=== PATIENT | female | born 1960 | race Caucasian/White ===

== ENCOUNTER 2017-07-10 10:33 | Emergency (ER) | payer SELFPAY ==
--- NOTE | 2017-07-10 11:06 | ER Document Report ---
ED Hip Pain/Injury - General Chief Complaint: Hip Pain Stated Complaint: RIGHT HIP PAIN Time Seen by Provider: 07/10/17 10:44 Mode of Arrival: Ambulatory Information source: Patient TRAVEL OUTSIDE OF THE [place] IN LAST 30 DAYS: No - HPI Patient complains to provider of: Pain Occurred: Other - Months Onset/Duration: Gradual Quality of pain: Dull Severity: Moderate Pain Level: 2 Symptoms since fall: denies: Chest pain, Cough, Dizzy/light-headed, Fever/chills /sweats, Vomiting/diarrhea Skin Color: Normal Skin Temperature: Warm Notes: Patient arrives with complaints of right hip pain for the last 5 months. 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 She has any low back pain now. She complains of right hip pain, worse with movement. She is having trouble sleeping now due to the pain. She denies any abdominal pain, nausea, vomiting, diarrhea, dysuria. She denies any numbness, tingling, weakness. She denies any bowel or bladder dysfunction. She denies IV drug use, blood thinners , fever. She has no other complaints at this time. - Related Data Allergies/Adverse Reactions: acetaminophen [From Pamprin Max] Allergy (Verified 07/10/17 10:38) aspirin [From Pamprin Max] Allergy (Verified 07/10/17 10:38) caffeine [From Pamprin Max] Allergy (Verified 07/10/17 10:38) Past Medical History - Social History Smoking Status: Current Every Day Smoker Chew tobacco use (# tins/day): No Frequency of alcohol use: Rare Drug Abuse: None Family History: Reviewed & Not Pertinent Renal/ Medical History: Denies: Hx Peritoneal Dialysis Surgical Hx: Negative - Immunizations Hx Diphtheria, Pertussis, Tetanus Vaccination: No Review of Systems - Review of Systems -: Yes All other systems reviewed and negative Physical Exam - Vital signs Vitals: Temp Pulse Resp BP Pulse Ox 97.6 F 74 20 194/74 H 95 07/10/17 10:40 07/10/17 10:40 07/10/17 10:40 07/10/17 10:40 07/10/17 10:40 - Notes Notes: GENERAL: alert, cooperative, nontoxic, no distress. HEAD: normocephalic, atraumatic EYES: conjunctiva pink without discharge, no external redness or swelling. EARS: no external swelling, no external redness NOSE: atraumatic, no external swelling MOUTH/THROAT: mucous membranes moist and pink, posterior pharynx without erythema, swelling, exudate. No trismus or drooling. NECK: soft, supple, full range of motion, no meningismus. CHEST: no distress, lungs clear and equal throughout. No wheezing, rales, rhonchi. CARDIAC: regular rate and rhythm, no murmur, normal capillary refill, normal pulses. No peripheral edema noted. ABDOMEN: soft, nontender, no pusatile mass. BACK: Full range of motion, no redness, no rash. EXTREMITIES: full range of motion of all extremities. No redness, no swelling. NEURO: alert and oriented -3, no focal deficits, full range of motion of all extremities. 5 out of 5 flexion and extension of the lower extremities bilaterally. Patellar and Achilles deep tendon reflexes are +2 bilaterally. Normal sensation with no saddle anesthesia. PYSCH: appropriate mood, affect. Patient is cooperative. SKIN: pink, warm, dry, no rash. Course - Re-evaluation Re-evalutation: 07/10/17 13:11 Patient is nontoxic appearing with stable vitals. Patient has been experiencing right hip pain for the past several months. No significant trauma. She has a benign exam. Plain x-rays showed a possible lytic lesion. CT of the pelvis shows a aggressive lytic lesion to the right acetabulum concerning for possible myeloma or metastatic disease. I discussed these findings with the patient. She does not currently have a primary care provider here. I will refer her to oncology as well as primary care. I stressed the importance of having this further evaluated as it is possible that she has cancer that is undiagnosed. The patient is noted to have elevated blood pressure during today's emergency department visit. The patient was informed of this finding. The patient was instructed that this may be related to pre-hypertension and requires further evaluation with a primary care provider. The patient has no hypertensive symptoms at this time. - Vital Signs Vital signs: Temp Pulse Resp BP Pulse Ox 97.4 F 62 16 192/75 H 98 07/10/17 11:56 07/10/17 11:56 07/10/17 11:56 07/10/17 11:56 07/10/17 11:56 - Diagnostic Test Radiology reviewed: Image reviewed, Reports reviewed - Plain x-rays showed possible lytic lesion in the right pubic rami. CT of the pelvis shows aggressive lytic lesion in the right acetabulum. Discharge - Discharge Clinical Impression: Lytic bone lesion of hip Condition: Stable Disposition: HOME, SELF-CARE Instructions: Oral Narcotic Medication ([facility]) Additional Instructions: Take medications as prescribed. Follow-up with oncology and primary care at the next available appointment. Follow-up sooner for increased pain, fever, any further concerns. Your blood pressure was elevated during today's visit. Have this rechecked with your doctor. Prescriptions: Hydrocodone/Acetaminophen [[place] 5-325 mg Tablet] 1 tab PO Q4 PRN #20 tablet PRN Reason: Forms: Elevated Blood Pressure, Return to Work Referrals: EMELY DAVIS MD [ACTIVE STAFF] - Follow up as needed [facility] [Provider Group] - Follow up as needed
[2017-07-10 11:58] VITALS: BP 192/75
--- NOTE | 2017-07-10 12:08 | RADIOLOGY REPORT (SQ) ---
EXAM DESCRIPTION: HIP RIGHT AP/LATERAL COMPLETED DATE/TIME: 07/10/2017 11:43 am REASON FOR STUDY: PAIN COMPARISON: None. NUMBER OF VIEWS: Two views. TECHNIQUE: AP pelvis and additional frog-leg view of the right hip. LIMITATIONS: None. FINDINGS: Discontinuous right iliopectineal line may be artifact of positioning however cannot exclu de an aggressive bone lesion in the superior pubic ramus. IMPRESSION: Questionable lytic lesion right pubic ramus. TECHNICAL DOCUMENTATION: JOB ID: [id number] [employer]- All Rights Reserved
--- NOTE | 2017-07-10 12:10 | RADIOLOGY REPORT (SQ) ---
EXAM DESCRIPTION: L SPINE WHOLE COMPLETED DATE/TIME: 07/10/2017 11:43 am REASON FOR STUDY: PAIN COMPARISON: None. NUMBER OF VIEWS: Five views including obliques. TECHNIQUE: AP, lateral, oblique, and sacral radiographic images acquired of the lumbar spine. LIMITATIONS: None. FINDINGS: MINERALIZATION: Normal. SEGMENTATION: Normal. No transitional anatomy. ALIGNMENT: Normal. VERTEBRAE: Maintained height. No fracture or worrisome bone lesion. DISCS: Multilevel disc space narrowing with osteophytes. POSTERIOR ELEMENTS: Pedicles and facets are intact. No pars defect or posterior arch defects. Facet arthropathy is present. HARDWARE: None in the spine. PARASPINAL SOFT TISSUES: Normal. PELVIS: See separate report of the same date. OTHER: No other significant finding. IMPRESSION: SPONDYLOSIS WITHOUT BONE LESION OR FRACTURE. TECHNICAL DOCUMENTATION: JOB ID: [id number] [employer]- All Rights Reserved
--- NOTE | 2017-07-10 12:58 | RADIOLOGY REPORT (SQ) ---
EXAM DESCRIPTION: CT PELVIS WITHOUT COMPLETED DATE/TIME: 07/10/2017 12:37 pm REASON FOR STUDY: RIGHT HIP PAIN, POSSIBLE LYTIC LESION RIGHT RAMI COMPARISON: None. TECHNIQUE: CT scan of the pelvis performed without intravenous or oral contrast. Images reviewed wi th soft tissue and bone windows. Reconstructed coronal and sagittal MPR images reviewed. All images stored on PACS. All CT scanners at this facility use dose modulation, iterative reconstruction, and/or weight based d osing when appropriate to reduce radiation dose to as low as reasonably achievable (ALARA). [facility]: Dose Right [facility]: CareDose [facility]: Dose Right [facility]: Teradose 4D [facility]: [employer] RADIATION DOSE: Up-to-date CT equipment and radiation dose reduction techniques were employed. CTDIv ol: 18.3 mGy. DLP: 563 mGy-cm. mGy. LIMITATIONS: None. FINDINGS: There is a lytic lesion in the right acetabulum which has eroded the medial margin of the ilium and acetabular roof. Lesion measures roughly 2.8 x 4.7 by 3.7 cm. IMPRESSION: Aggressive lytic lesion right acetabulum, most likely myeloma or metastatic disease. TECHNICAL DOCUMENTATION: JOB ID: [id number] Quality ID # [id number]: Final reports with documentation of one or more dose reduction techniques (e.g., Au tomated exposure control, adjustment of the mA and/or kV according to patient size, use of iterative reconstruction technique) 2010 [employer]- All Rights Reserved
== END 2017-07-10 13:29 | disposition home or self-care (01) ==
LOC: ER 10:33
DX: M89.9 Disorder of bone, unspecified (principal); M25.551 Pain in right hip; F17.200 Nicotine dependence, unspecified, uncomplicated
CPT/HCPCS: 72110; 72192; 99284

== ENCOUNTER → 2017-08-25 | Outpatient (CLI) | payer SELFPAY ==
--- NOTE | 2017-08-25 10:58 | RADIOLOGY REPORT (SQ) ---
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 TECHNIQUE: CT scan of the chest performed using helical scanning technique with dynamic intravenous contrast injection. Images reviewed with lung, soft tissue and bone windows. Reconstructed coronal a nd sagittal MPR images reviewed. All images stored on PACS. All CT scanners at this facility use dose modulation, iterative reconstruction, and/or weight based d osing when appropriate to reduce radiation dose to as low as reasonably achievable (ALARA). [facility]: Dose Right [facility]: CareDose [facility]: Dose Right [facility]: Teradose 4D [facility]: Smart [employer] RADIATION DOSE: Up-to-date CT equipment and radiation dose reduction techniques were employed. CTDIv ol: 6.7 - 13.6 mGy. DLP: 1623 mGy-cm.. LIMITATIONS: Limited clinical information. FINDINGS: AXILLAE: Small subcentimeter axillary nodes without suspicious enlargement. CHEST WALL: No masses. No subcutaneous air. LUNGS: Mass adjacent to the right hilum with mild spiculation, regional architectural distortion and associated volume loss in the lung of the right upper lobe. This measures at least 3.7 x 5 cm AP by transverse. PLEURA: No effusions. No calcifications. THYROID: No masses or significant asymmetry. HILAR AND MEDIASTINAL STRUCTURES: Small nodes in the mediastinum measure just under 1 cm short axis. Mass adjacent to the right hilum with probable confluent adenopathy. AORTA AND GREAT VESSELS: No aneurysm. No dissection. PULMONARY ARTERIES: No identified pulmonary emboli. Study not optimized for the pulmonary arteries. HEART: No pericardial effusion. HARDWARE AND LIFELINES: None. BONES: No significant finding. OTHER: No other significant finding. IMPRESSION: 1. Sizable mass in the right upper lobe. Appearance suggests primary lung cancer. No other lung lesions are detected. COMPARISON: As above. RADIATION DOSE: Up-to-date CT equipment and radiation dose reduction techniques were employed. CTDIv ol: 6.7 - 13.6 mGy. DLP: 1623 mGy-cm.mGy. TECHNIQUE: CT scan of the abdomen and pelvis performed with intravenous and oral contrast using eldon adilene scanning technique with dynamic intravenous contrast injection. Images reviewed with lung, soft tissue and bone windows. Reconstructed coronal and sagittal MPR images reviewed. Delayed images for evaluation of the urinary system also acquired and evaluated. All images stored on PACS. All CT scanners at this facility use dose modulation, iterative reconstruction, and/or weight based d osing when appropriate to reduce radiation dose to as low as reasonably achievable (ALARA). [facility]: Dose Right [facility]: [employer] [facility]: Dose Right [facility]: Teradose 4D [facility]: [place] FINDINGS: LIVER: Normal size. No masses. No dilated ducts. SPLEEN: Normal size. No focal lesions. PANCREAS: No masses. No significant calcifications. No adjacent inflammation or peripancreatic flui d collections. Pancreatic duct not dilated. GALLBLADDER: No identified stones by CT criteria. No inflammatory changes to suggest cholecystitis. ADRENAL GLANDS: No significant masses or asymmetry. RIGHT KIDNEY AND URETER: No solid masses. No significant calcification. No hydronephrosis or hydroure ter. LEFT KIDNEY AND URETER: No solid masses. No significant calcification. No hydronephrosis or hydrouret er. AORTA AND VESSELS: Atherosclerotic aorta without aneurysm or dissection. Generally patent major star rial structures. No venous clot detected. RETROPERITONEUM: No retroperitoneal adenopathy, hemorrhage or masses. LARGE AND SMALL BOWEL: No dilatation. No masses. No wall thickening. APPENDIX: Normal. ABDOMINAL WALL: No hernia or masses. PERITONEAL CAVITY: No free air. No free fluid. No peritoneal implants or masses. PELVIS: 1.8 cm left jame pelvic cyst, adnexal etiology suspected. Destructive lesion in the right ac etabulum with soft tissue breaching the cortical surfaces as before. Slight progression. Maximal AP extent now over 8 cm. BONES: As above. Additional presumed lytic lesions in the right inferior pubic ramus, left ischium, right ischium. OTHER: No other significant finding. IMPRESSION: 1. Slightly progressive destructive lesion in the right acetabulum. Additional subtle lytic lesions are also present in the inferior right pubic ramus and ischia. Presumably metastatic l esions. Correlate with any biopsy/pathology results. TECHNICAL DOCUMENTATION: JOB ID: [id number] Quality ID # 436: Final reports with documentation of one or more dose reduction techniques (e.g., Au tomated exposure control, adjustment of the mA and/or kV according to patient size, use of iterative reconstruction technique) 2010 [employer]- All Rights Reserved
== END ==
LOC: RAD 09:09
PROVIDERS: ATTEND Orthopaedic Surgery
DX: C79.51 Secondary malignant neoplasm of bone (principal)
CPT/HCPCS: 71260; 74177; 82565

== ENCOUNTER 2017-09-01 08:52 | Day surgery (SDC) | payer SELFPAY ==
[2017-09-01 09:38] LABS: HEMATOCRIT 37.5 % (36.0-47.0); HEMOGLOBIN 13.3 g/dL (12.0-15.5); HGB HCT DIFFERENCE 2.4; MEAN CORPUSCULAR HGB CONC 35.6 g/dL (32.0-36.0); MEAN CORPUSCULAR VOLUME 90 fl (80-97); PROTHROMBIN TIME 13.3 SEC (11.4-15.4); RED BLOOD COUNT 4.17 10^6/uL (3.72-5.28); RED CELL DISTRIBUTION WIDTH 13.4 % (11.5-14.0); WHITE BLOOD COUNT 9.7 10^3/uL (4.0-10.5)
[2017-09-01 09:39] LABS: PARTIAL THROMBOPLASTIN TIME 28.7 SEC (23.5-35.8)
[2017-09-01 09:58] LABS: BLOOD UREA NITROGEN 20 mg/dL (7-20); CREATININE RESULT 0.64 mg/dL (0.52-1.25)
[2017-09-01] MEDS ORDERED: ALBUTEROL SULFATE 0.083% NEB 2.5 MG/3 ML AMPUL NEB ONE (10:47)
[2017-09-01] MEDS ORDERED: FENTANYL CITRATE INJ/PF 100 MCG/2 ML AMPUL ONE (11:18)
[2017-09-01] MEDS ORDERED: MIDAZOLAM 2 MG/2 ML INJ ONE (11:18)
--- NOTE | 2017-09-01 13:34 | RADIOLOGY REPORT (SQ) ---
EXAM DESCRIPTION: CT BIOPSY BONE DEEP; CT NEEDLE PLACEMENT COMPLETED DATE/TIME: 09/01/2017 12:06 pm REASON FOR STUDY: MALIGNANT NEOPLASM OF BONE; MALIGNANT NEOPLASM OF BONE, BONE BIOPSY C79.51 SECOND IVETT MALIGNANT NEOPLASM OF BONE COMPARISON: Right hip films 07/10/2017 CT pelvis 07/10/2017 CT abdomen pelvis 08/25/2017 TECHNIQUE: CT guided biopsy of the right acetabular roof bony lytic lesion performed with conscious sedation. CT Fluoroscopy Time: 3.[address] scanners at this facility use dose modulation, iterative reconstruction, and/or weight based d osing when appropriate to reduce radiation dose to as low as reasonably achievable (ALARA). [facility]: Dose Right [facility]: CareDose [facility]: Dose Right [facility]: Teradose 4D [facility]: [email or web address] RADIATION DOSE: 48 mGy. FINDINGS: The procedure was discussed with the patient and the patient agreed to the procedure. Prio r to the procedure, a time out was performed to verify the patient's identity and planned procedure. IV sedation was administered and physician direction by the registered nurse using 1 milligrams of Ve rsed and 100 micrograms of fentanyl. Physiologic monitoring was provided before, during, and after se dation. The total sedation time was 30 minutes. Documentation face to face time, the performing proceduralist, spent monitoring the patient: [address] scanning was performed to localize the percutaneous site for the biopsy approach. After sterile skin prep and local lidocaine for skin and deep tissue anesthesia, a coaxial biopsy nee dle was used to obtain multiple cores of tissue. The biopsy tract was embolized with a gelfoam plug. The biopsy tissue was submitted to the lab in formalin. There were no immediate complications. Pathology is pending at the time of dictation. IMPRESSION: CT GUIDED BIOPSY OF THE LYTIC BONE LESION RIGHT ACETABULAR ROOF PERFORMED WITHOUT IMMEDI ATE COMPLICATION. PATHOLOGY PENDING. COMMENT: Quality ID 145: Final reports for procedures using fluoroscopy that document radiation exp osure indices, or exposure time and number of fluorographic images (if radiation exposure indices are not available) Patient medication list reviewed: Yes- Quality ID# [id number]:Eligible professional attests to documenting i n the medical record they obtained, updated, or reviewed the patient's current medications.. TECHNICAL DOCUMENTATION: JOB ID: [id number] Quality ID# 436: Final reports with documentation of one or more dose reduction techniques (e.g., Aut omated exposure control, adjustment of the mA and/or kV according to patient size, use of iterative r econstruction technique) 2010 [employer]- All Rights Reserved
--- NOTE | 2017-09-01 13:34 | RADIOLOGY REPORT (SQ) ---
EXAM DESCRIPTION: CT BIOPSY BONE DEEP; CT NEEDLE PLACEMENT COMPLETED DATE/TIME: 09/01/2017 12:06 pm REASON FOR STUDY: MALIGNANT NEOPLASM OF BONE; MALIGNANT NEOPLASM OF BONE, BONE BIOPSY C79.51 SECOND IVETT MALIGNANT NEOPLASM OF BONE COMPARISON: Right hip films 07/10/2017 CT pelvis 07/10/2017 CT abdomen pelvis 08/25/2017 TECHNIQUE: CT guided biopsy of the right acetabular roof bony lytic lesion performed with conscious sedation. CT Fluoroscopy Time: 3.[address] scanners at this facility use dose modulation, iterative reconstruction, and/or weight based d osing when appropriate to reduce radiation dose to as low as reasonably achievable (ALARA). [facility]: Dose Right [facility]: CareDose [facility]: Dose Right [facility]: Teradose 4D [facility]: [employer] RADIATION DOSE: 48 mGy. FINDINGS: The procedure was discussed with the patient and the patient agreed to the procedure. Prio r to the procedure, a time out was performed to verify the patient's identity and planned procedure. IV sedation was administered and physician direction by the registered nurse using 1 milligrams of Ve rsed and 100 micrograms of fentanyl. Physiologic monitoring was provided before, during, and after se dation. The total sedation time was 30 minutes. Documentation face to face time, the performing proceduralist, spent monitoring the patient: [address] scanning was performed to localize the percutaneous site for the biopsy approach. After sterile skin prep and local lidocaine for skin and deep tissue anesthesia, a coaxial biopsy nee dle was used to obtain multiple cores of tissue. The biopsy tract was embolized with a gelfoam plug. The biopsy tissue was submitted to the lab in formalin. There were no immediate complications. Pathology is pending at the time of dictation. IMPRESSION: CT GUIDED BIOPSY OF THE LYTIC BONE LESION RIGHT ACETABULAR ROOF PERFORMED WITHOUT IMMEDI ATE COMPLICATION. PATHOLOGY PENDING. COMMENT: Quality ID 145: Final reports for procedures using fluoroscopy that document radiation exp osure indices, or exposure time and number of fluorographic images (if radiation exposure indices are not available) Patient medication list reviewed: Yes- Quality ID# [id number]:Eligible professional attests to documenting i n the medical record they obtained, updated, or reviewed the patient's current medications.. TECHNICAL DOCUMENTATION: JOB ID: [id number] Quality ID# [id number]: Final reports with documentation of one or more dose reduction techniques (e.g., Aut omated exposure control, adjustment of the mA and/or kV according to patient size, use of iterative r econstruction technique) 2010 [employer]- All Rights Reserved
[2017-09-01 13:48] VITALS: BP 119/68
== END 2017-09-01 13:40 | disposition home or self-care (01) ==
LOC: RAD 08:52
PROVIDERS: ATTEND Orthopaedic Surgery
PROC: 0QB63ZX Excision of Right Upper Femur, Percutaneous Approach, Diagnostic (ICD-10-PCS; principal; 2017-09-01)
DX: C79.51 Secondary malignant neoplasm of bone (principal); J45.909 Unspecified asthma, uncomplicated; I10 Essential (primary) hypertension; Z87.891 Personal history of nicotine dependence
CPT/HCPCS: 36415; 84520; 82565; 85027; 85610; 85730; 88342 ×2; 88341 ×2; 88305 ×2; 88313 ×2; 77012; 20225; J2250; J3010

== ENCOUNTER 2017-09-10 12:36 | Emergency (ER) | payer SELFPAY ==
[2017-09-10 12:45] VITALS: BP 125/65
--- NOTE | 2017-09-10 13:26 | ER Document Report ---
ED Medical Screen (RME) - General Chief Complaint: Leg Pain Stated Complaint: RIGHT HIP PAIN Time Seen by Provider: 09/10/17 13:23 Mode of Arrival: Wheelchair Information source: Patient TRAVEL OUTSIDE OF THE [place] IN LAST 30 DAYS: No - HPI Patient complains to provider of: injury to R hip Onset: Yesterday - pt. 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 She had an injury to her R leg yesterday which has caused increased pain in her hip today. - Related Data Allergies/Adverse Reactions: acetaminophen [From Pamprin Max] Allergy (Verified 09/10/17 12:42) aspirin [From Pamprin Max] Allergy (Verified 09/10/17 12:42) caffeine [From Pamprin Max] Allergy (Verified 09/10/17 12:42) codeine Allergy (Verified 09/10/17 12:42) Tachycardia Past Medical History - Past Medical History Cardiac Medical History: Reports: Hx Hypertension Denies: Hx Coronary Artery Disease, Hx Heart Attack Pulmonary Medical History: Reports: Hx Asthma Denies: Hx Bronchitis, Hx COPD, Hx Pneumonia Neurological Medical History: Denies: Hx Cerebrovascular Accident, Hx Seizures Renal/ Medical History: Denies: Hx Peritoneal Dialysis Musculoskeltal Medical History: Denies Hx Arthritis - Immunizations Hx Diphtheria, Pertussis, Tetanus Vaccination: Yes History of Influenza Vaccine for 08/2017 - 01/2018 Season: No Physical Exam - Vital signs Vitals: Temp Pulse Resp BP Pulse Ox 98.0 F 73 18 125/65 96 09/10/17 12:42 09/10/17 12:42 09/10/17 12:42 09/10/17 12:42 09/10/17 12:42 Course - Vital Signs Vital signs: Temp Pulse Resp BP Pulse Ox 98.0 F 73 18 125/65 96 09/10/17 12:42 09/10/17 12:42 09/10/17 12:42 09/10/17 12:42 09/10/17 12:42
--- NOTE | 2017-09-10 13:53 | RADIOLOGY REPORT (SQ) ---
EXAM DESCRIPTION: HIP RIGHT AP/LATERAL COMPLETED DATE/TIME: 09/10/2017 1:44 pm REASON FOR STUDY: trauma to hip COMPARISON: 07/10/2017. NUMBER OF VIEWS: Two views. TECHNIQUE: AP pelvis and additional frog-leg view of the right hip. LIMITATIONS: None. FINDINGS: MINERALIZATION: Normal. RIGHT HIP: No fracture or dislocation. Significant progression of the aggressive lytic lesion involv ing the acetabulum. LEFT HIP: No fracture or dislocation. No worrisome bone lesions. PUBIS AND ISCHIUM: No fracture. PELVIS: No fracture. SACRUM: No fracture or dislocation. No worrisome bone lesions. LOWER LUMBAR SPINE: No fracture or dislocation. No worrisome bone lesions. Degenerative disc disease . SOFT TISSUES: No findings. OTHER: No other significant finding. IMPRESSION: SIGNIFICANT PROGRESSION OF THE AGGRESSIVE LYTIC LESION INVOLVING THE RIGHT ACETABULUM. NO DEFINITE ACUTE TRAUMATIC FINDINGS. TECHNICAL DOCUMENTATION: JOB ID: [id number] [employer]- All Rights Reserved
--- NOTE | 2017-09-10 14:05 | ER Document Report ---
ED General - General Chief Complaint: Leg Pain Stated Complaint: RIGHT HIP PAIN Time Seen by Provider: 09/10/17 13:23 Mode of Arrival: Wheelchair Information source: Patient, [facility] Records TRAVEL OUTSIDE OF THE [place] IN LAST 30 DAYS: No - HPI Onset: Yesterday Onset/Duration: Sudden Quality of pain: Dull Severity: Moderate Associated symptoms: None Exacerbated by: Denies Relieved by: Denies Similar symptoms previously: Yes Recently seen / treated by doctor: Yes Notes: Patient is a 56-year-old female with known history of malignant neoplasm of right hip. Patient underwent CT-guided biopsy of right acetabular roof on September 01. Patient does receive radiation therapy to this area as well. Yesterday, after her radiation therapy, she john her right hip causing pain. Patient was concerned that maybe it was broken or dislocated. Patient presents this afternoon for evaluation of her right hip pain. She is on chronic opioid therapy for her bone pain. Patient denies any other complaints or injuries. - Related Data Allergies/Adverse Reactions: acetaminophen [From Pamprin Max] Allergy (Verified 09/10/17 12:42) aspirin [From Pamprin Max] Allergy (Verified 09/10/17 12:42) caffeine [From Pamprin Max] Allergy (Verified 09/10/17 12:42) codeine Allergy (Verified 09/10/17 12:42) Tachycardia Past Medical History - General Information source: Patient, [facility] Records - Social History Smoking Status: Current Every Day Smoker Chew tobacco use (# tins/day): No Frequency of alcohol use: None Drug Abuse: None Family History: Reviewed & Not Pertinent Patient has suicidal ideation: No Patient has homicidal ideation: No - Past Medical History Cardiac Medical History: Reports: Hx Hypertension Denies: Hx Coronary Artery Disease, Hx Heart Attack Pulmonary Medical History: Reports: Hx Asthma Denies: Hx Bronchitis, Hx COPD, Hx Pneumonia Neurological Medical History: Denies: Hx Cerebrovascular Accident, Hx Seizures Renal/ Medical History: Denies: Hx Peritoneal Dialysis Musculoskeltal Medical History: Denies Hx Arthritis Surgical Hx: Negative - Immunizations Hx Diphtheria, Pertussis, Tetanus Vaccination: Yes Review of Systems - Review of Systems Musculoskeletal: Joint pain -: Yes All other systems reviewed and negative Physical Exam - Vital signs Vitals: Temp Pulse Resp BP Pulse Ox 98.0 F 73 18 125/65 96 09/10/17 12:42 09/10/17 12:42 09/10/17 12:42 09/10/17 12:42 09/10/17 12:42 - General General appearance: Appears well, Alert In distress: None - Respiratory Respiratory status: No respiratory distress Breath sounds: Normal - Cardiovascular Rhythm: Regular Heart sounds: Normal auscultation - Extremities General upper extremity: Normal inspection, Other - Right hip tender to palpation with painful passive and active range of motion, joint does not appear dislocated, there is no gross deformity, all other extremities are within normal limits - Neurological Neuro grossly intact: Yes Cognition: Normal Orientation: AAOx4 [place] Coma Scale Eye Opening: Spontaneous [place] Coma Scale Verbal: Oriented [place] Coma Scale Motor: Obeys Commands [place] Coma Scale Total: 15 Speech: Normal Motor strength normal: LUE, RUE, LLE, RLE Sensory: Normal Course - Vital Signs Vital signs: Temp Pulse Resp BP Pulse Ox 98.0 F 73 18 125/65 96 09/10/17 12:42 09/10/17 12:42 09/10/17 12:42 09/10/17 12:42 09/10/17 12:42 - Diagnostic Test Radiology reviewed: Reports reviewed Radiology results interpreted by me: 09/10/17 14:04 Per radiologist, extensive lytic changes in the right hip but no acute traumatic findings. Patient given copy of x-ray report for her radiation oncologist reviewed. Discharge - Discharge Clinical Impression: Hip pain Disposition: HOME, SELF-CARE Instructions: Contusion ([facility]) Additional Instructions: Continue on your prescribed pain medication. Follow-up with your oncologist, radiation oncologist, and primary care doctor. Return to the emergency department if worse or for any other problems.
== END 2017-09-10 14:35 | disposition home or self-care (01) ==
LOC: ER 12:36
DX: M25.551 Pain in right hip (principal); C76.51 Malignant neoplasm of right lower limb; F17.200 Nicotine dependence, unspecified, uncomplicated; I10 Essential (primary) hypertension; M89.8X9 Other specified disorders of bone, unspecified site; Z79.891 Long term (current) use of opiate analgesic; Z88.5 Allergy status to narcotic agent; Z88.6 Allergy status to analgesic agent; Z91.048 Other nonmedicinal substance allergy status
CPT/HCPCS: 99283

== ENCOUNTER 2017-09-16 11:33 | Inpatient (IN) | payer MEDICAID ==
--- NOTE | 2017-09-16 12:24 | ER Document Report ---
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 She is on large doses of pain medication. Last bowel movement was 1 week ago, was starting get hard then. She has been taking stool softeners but has not had a bowel movement in the past week and is becoming uncomfortable due to this. I have greeted and performed a rapid initial assessment of this patient. A comprehensive ED assessment and evaluation of the patient, analysis of test results and completion of the medical decision making process will be conducted by additional ED providers. TRAVEL OUTSIDE OF THE [place] IN LAST 30 DAYS: No - Related Data Allergies/Adverse Reactions: acetaminophen [From Pamprin Max] Allergy (Verified 09/16/17 11:34) aspirin [From Pamprin Max] Allergy (Verified 09/16/17 11:34) caffeine [From Pamprin Max] Allergy (Verified 09/16/17 11:34) codeine Allergy (Verified 09/16/17 11:34) Tachycardia Past Medical History - Social History Chew tobacco use (# tins/day): No Frequency of alcohol use: None Drug Abuse: None - Past Medical History Cardiac Medical History: Reports: Hx Hypertension Denies: Hx Coronary Artery Disease, Hx Heart Attack Pulmonary Medical History: Reports: Hx Asthma Denies: Hx Bronchitis, Hx COPD, Hx Pneumonia Neurological Medical History: Denies: Hx Cerebrovascular Accident, Hx Seizures Renal/ Medical History: Denies: Hx Peritoneal Dialysis Musculoskeltal Medical History: Denies Hx Arthritis - Immunizations Hx Diphtheria, Pertussis, Tetanus Vaccination: Yes History of Influenza Vaccine for 08/2017 - 01/2018 Season: No Physical Exam - Vital signs Vitals: Temp Pulse Resp BP Pulse Ox 98.4 F 80 18 99/54 L 95 09/16/17 11:37 09/16/17 11:37 09/16/17 11:37 09/16/17 11:37 09/16/17 11:37 Course - Vital Signs Vital signs: Temp Pulse Resp BP Pulse Ox 98.4 F 80 18 99/54 L 95 09/16/17 11:37 09/16/17 11:37 09/16/17 11:37 09/16/17 11:37 09/16/17 11:37
--- NOTE | 2017-09-16 12:51 | RADIOLOGY REPORT (SQ) ---
EXAM DESCRIPTION: KUB/ABDOMEN (SINGLE VIEW) COMPLETED DATE/TIME: 09/16/2017 12:35 pm REASON FOR STUDY: CONSTIPATION COMPARISON: None. NUMBER OF VIEWS: One view. TECHNIQUE: Supine radiographic image of the abdomen acquired. LIMITATIONS: None. FINDINGS: BOWEL GAS PATTERN: Normal bowel gas pattern. No dilated loops. CONSTIPATION: moderate CALCIFICATIONS: No suspicious calcifications. SOFT TISSUES: No gross mass or suggestion of organomegaly. HARDWARE: None in the abdomen. BONES: Chronic subluxation right femoral head. Large lytic area of the right acetabulum and ischiopu bic junction again noted. OTHER: No other significant finding. IMPRESSION: NO RADIOGRAPHIC EVIDENCE FOR ACUTE ABDOMINAL DISEASE. See above bony changes. Moderate constipation. TECHNICAL DOCUMENTATION: JOB ID: [id number] [employer]- All Rights Reserved
--- NOTE | 2017-09-16 15:02 | ER Document Report ---
ED General - General Chief Complaint: Constipation Stated Complaint: ABDOMINAL PAIN, RIGHT HIP PAIN Time Seen by Provider: 09/16/17 12:19 Mode of Arrival: Wheelchair Information source: Patient, Relative Notes: 56-year-old female history of cancer lytic of the right hip presents with complaints of hip pain. Patient notes she has been having difficulty ambulating has not been able to have her radiation therapy performed. They note they are supposed to have surgery done but they are waiting for the mass to get smaller TRAVEL OUTSIDE OF THE [place] IN LAST 30 DAYS: No - HPI Onset: Other Onset/Duration: Persistent Quality of pain: Achy Severity: Moderate Pain Level: 3 Associated symptoms: Other Exacerbated by: Walking Relieved by: Denies Similar symptoms previously: Yes Recently seen / treated by doctor: Yes - Related Data Allergies/Adverse Reactions: acetaminophen [From Pamprin Max] Allergy (Verified 09/16/17 11:34) aspirin [From Pamprin Max] Allergy (Verified 09/16/17 11:34) caffeine [From Pamprin Max] Allergy (Verified 09/16/17 11:34) codeine Allergy (Verified 09/16/17 11:34) Tachycardia Past Medical History - Social History Smoking Status: Current Every Day Smoker Cigarette use (# per day): Yes Chew tobacco use (# tins/day): No Smoking Education Provided: No Frequency of alcohol use: None Drug Abuse: None Family History: Reviewed & Not Pertinent Patient has suicidal ideation: No Patient has homicidal ideation: No - Past Medical History Cardiac Medical History: Reports: Hx Hypertension Denies: Hx Coronary Artery Disease, Hx Heart Attack Pulmonary Medical History: Reports: Hx Asthma Denies: Hx Bronchitis, Hx COPD, Hx Pneumonia Neurological Medical History: Denies: Hx Cerebrovascular Accident, Hx Seizures Renal/ Medical History: Denies: Hx Peritoneal Dialysis Musculoskeltal Medical History: Denies Hx Arthritis - Immunizations Hx Diphtheria, Pertussis, Tetanus Vaccination: Yes Review of Systems - Review of Systems Notes: REVIEW OF SYSTEMS: CONSTITUTIONAL : Denies fever, chills, or sweats. Denies recent illness. EENT: Denies eye, ear, throat, or mouth pain or symptoms. Denies nasal or sinus congestion or discharge. Denies throat, tongue, or mouth swelling or difficulty swallowing. CARDIOVASCULAR: Denies chest pain. Denies palpitations or racing or irregular heart beat. Denies ankle edema. RESPIRATORY: Denies cough, cold, or chest congestion. Denies shortness of breath, difficulty breathing, or wheezing. GASTROINTESTINAL: Admits to constipation GENITOURINARY: Denies difficulty urinating, painful urination, burning, frequency, blood in urine, or discharge. FEMALE GENITOURINARY: Denies vaginal bleeding, heavy or abnormal periods, irregular periods. Denies vaginal discharge or odor. MUSCULOSKELETAL: Right hip pain SKIN: Denies rash, lesions or sores. HEMATOLOGIC : Denies easy bruising or bleeding. LYMPHATIC: Denies swollen, enlarged glands. NEUROLOGICAL: Denies confusion or altered mental status. Denies passing out or loss of consciousness. Denies dizziness or lightheadedness. Denies headache. Denies weakness or paralysis or loss of use of either side. Denies problems with gait or speech. Denies sensory loss, numbness, or tingling. Denies seizures. PSYCHIATRIC: Denies anxiety or stress. Denies depression, suicidal ideation, or homicidal ideation. ALL OTHER SYSTEMS REVIEWED AND NEGATIVE. PHYSICAL EXAMINATION: GENERAL: Well-appearing, well-nourished and in no acute distress. HEAD: Atraumatic, normocephalic. EYES: Pupils equal round and reactive to light, extraocular movements intact, conjunctiva are normal. ENT: Nares patent, oropharynx clear without exudates. Moist mucous membranes. NECK: Normal range of motion, supple without lymphadenopathy LUNGS: Breath sounds clear to auscultation bilaterally and equal. No wheezes rales or rhonchi. HEART: Regular rate and rhythm without murmurs ABDOMEN: Soft, nontender, nondistended abdomen. No guarding, no rebound. No masses appreciated. Female : deferred Musculoskeletal: Pain with movement of the right hip NEUROLOGICAL: Cranial nerves grossly intact. Normal speech, normal gait. Normal sensory, motor exams PSYCH: Normal mood, normal affect. SKIN: Warm, Dry, normal turgor, no rashes or lesions noted. Dictation was performed using [employer] voice recognition software Physical Exam - Vital signs Vitals: Temp Pulse Resp BP Pulse Ox 98.4 F 80 18 99/54 L 95 09/16/17 11:37 09/16/17 11:37 09/16/17 11:37 09/16/17 11:37 09/16/17 11:37 Course - Re-evaluation Re-evalutation: 09/16/17 16:20 [address] did speak with [address] Borges regarding the patient's images my concerns regarding his ambulation, he was gracious in admitting this patient to his service. Patient was also consulted for social work help and they were able to obtain a wheelchair for - Vital Signs Vital signs: Temp Pulse Resp BP Pulse Ox 98.4 F 80 18 99/54 L 95 09/16/17 11:37 09/16/17 11:37 09/16/17 11:37 09/16/17 11:37 09/16/17 11:37 - Diagnostic Test Radiology reviewed: Image reviewed, Reports reviewed Discharge - Discharge Clinical Impression: Lytic bone lesion of hip Hip pain Qualifiers: Laterality: right Qualified Code(s): M25.551 - Pain in right hip Condition: Stable Disposition: ADMITTED INPATIENT Admitting Provider: Jony Unit Admitted: Surgical Floor
[2017-09-16] MEDS ORDERED: INFLUENZA ADLT QUAD (36MOS+) 2017-18 VAC 0.5 ML SYR IM PRN (18:47)
[2017-09-16] MEDS: OXYCODONE HCL IR 5 MG TABLET PO PRN (20:35)
--- NOTE | 2017-09-17 00:33 | RADIOLOGY REPORT (SQ) ---
EXAM DESCRIPTION: CT PELVIS WITHOUT COMPLETED DATE/TIME: 09/16/2017 7:55 pm REASON FOR STUDY: Hip Pain/Lessions COMPARISON: Right hip films dated 09/10/2017 TECHNIQUE: CT scan of the pelvis performed without intravenous or oral contrast. Images reviewed wi th soft tissue and bone windows. Reconstructed coronal and sagittal MPR images reviewed. All images stored on PACS. All CT scanners at this facility use dose modulation, iterative reconstruction, and/or weight based d osing when appropriate to reduce radiation dose to as low as reasonably achievable (ALARA). [facility]: Dose Right [facility]: CareDose [facility]: Dose Right [facility]: Teradose 4D [facility]: [employer] RADIATION DOSE: Up-to-date CT equipment and radiation dose reduction techniques were employed. CTDIv ol: 35.8 mGy. DLP: 1258 mGy-cm. mGy. LIMITATIONS: None. FINDINGS: PELVIC BONES: A large lytic lesion is identified centered in the right acetabular region w ith an associated soft tissue mass. Lytic lesions are identified involving both inferior pubic rami. VISUALIZED SPINE: No acute findings. HIP(S): No acute fracture or dislocation. No worrisome bone lesions. There is protrusion of the righ t femoral head into the lytic lesion involving the right acetabulum with medial and superior displace ment of the femoral head in relation to the acetabular. PELVIC SOFT TISSUES: No significant findings. EXTRAPELVIC SOFT TISSUES: No significant findings. OTHER: No other significant finding. IMPRESSION: Large lytic lesion centered in the right acetabular region as noted above. There is pro trusion of the right femoral head into the lytic lesion involving the right acetabulum with medial an d superior displacement of the femoral head in relation to the acetabulum. Lytic lesions are identif ied involving both inferior pubic rami. Other findings as noted above TECHNICAL DOCUMENTATION: JOB ID: [id number] Quality ID # [id number]: Final reports with documentation of one or more dose reduction techniques (e.g., Au tomated exposure control, adjustment of the mA and/or kV according to patient size, use of iterative reconstruction technique) 2010 [employer]- All Rights Reserved
[2017-09-17] MEDS: OXYCODONE HCL IR 5 MG TABLET PO PRN (04:16)
[2017-09-17] MEDS: MORPHINE SULFATE 10 MG/ML INJ IV PRN (06:02)
[2017-09-17] MEDS: NICOTINE 14 MG/24 HR PATCH.TD24 TD PRN (06:34)
--- NOTE | 2017-09-17 06:43 | PDOC H&P ---
History of Present Illness Admission Date/PCP: 09/16/17 18:25 History of Present Illness: LINA FARFAN is a 56 year old female known to me from outpatient visits who has biopsy-proven metastatic lung cancer to the right acetabulum. The patient was initially referred to radiation oncology because of the concerns about an impending pathologic fracture/protrusio. The patient has not been compliant and has only received one radiation treatment. Yesterday she was at home the visiting nurse service reported that she was unable to get off the couch because of severe pain. She was admitted for pain control primarily and a repeat CT scan demonstrates protrusio of the femoral head into the pelvis. Past Medical History Cardiac Medical History: Reports: Hypertension Denies: Coronary Artery Disease, Myocardial Infarction Pulmonary Medical History: Reports: Asthma Denies: Bronchitis, Chronic Obstructive Pulmonary Disease (COPD), Pneumonia Neurological Medical History: Denies: Seizures Musculoskeltal Medical History: Denies: Arthritis Hematology: Denies: Anemia Social History Information Source: Patient, Dr. Holman, [facility] Records Lives with: Family Smoking Status: Current Every Day Smoker Cigarettes Packs Per Day: 1 Frequency of Alcohol Use: None Hx Recreational Drug Use: No Hx Prescription Drug Abuse: No Family History Family History: Reviewed & Not Pertinent Parental Family History Reviewed: No Children Family History Reviewed: No Sibling(s) Family History Reviewed.: No Medication/Allergy Home Medications: Acetaminophen [Tylenol Extra Strength] 1,000 mg PO DAILYP PRN 09/16/17 Docusate Sodium [Colace 100 mg Capsule] 100 mg PO Q8 09/16/17 Hydrocodone/Acetaminophen [[place] 7.5-325 mg Tablet] 1 tab PO Q4HP PRN 09/16/17 Lisinopril/Hydrochlorothiazide [Zestoretic 10-12.5 mg Tablet] 1 tab PO DAILY 01/01 Morphine Sulfate [Roxanol] 10 mg PO Q4HP PRN 09/16/17 Sennosides [Chocolated Laxative] 30 mg PO Q12 09/16/17 Allergies/Adverse Reactions: acetaminophen [From Pamprin Max] Allergy (Verified 09/16/17 11:34) aspirin [From Pamprin Max] Allergy (Verified 09/16/17 11:34) caffeine [From Pamprin Max] Allergy (Verified 09/16/17 11:34) codeine Allergy (Verified 09/16/17 11:34) Tachycardia Review of Systems All systems: as per [facility] Physical Exam Vital Signs: Temp Pulse Resp BP Pulse Ox 36.8 C 75 18 108/54 L 95 09/16/17 23:48 09/16/17 23:48 09/16/17 23:48 09/16/17 23:48 09/16/17 23:48 Intake & Output 09/15/17 09/16/17 09/17/17 06:59 06:59 06:59 Intake Total 610 Output Total 850 Balance -240 General appearance: PRESENT: mild distress Head exam: PRESENT: normocephalic Eye exam: PRESENT: EOMI Teeth exam: PRESENT: poor dentation Respiratory exam: PRESENT: unlabored Cardiovascular exam: PRESENT: RRR Pulses: PRESENT: +1 pedal pulses bilateral Vascular exam: PRESENT: normal capillary refill GI/Abdominal exam: PRESENT: soft Rectal exam: PRESENT: deferred Extremities exam: PRESENT: other - Patient sitting up in a reclining chair. Right lower extremity is held extended. Any passive range of motion is painful. The significant pedal edema. Distal neurovascular examination is intact. Neurological exam: PRESENT: alert, awake, oriented to person, oriented to place , oriented to time, oriented to situation. ABSENT: motor sensory deficit Psychiatric exam: PRESENT: appropriate affect, normal mood. ABSENT: homicidal ideation, suicidal ideation Skin exam: PRESENT: dry, intact, warm. ABSENT: cyanosis, rash Results Impressions: Pelvis CT 09/16/17 00:00 IMPRESSION: Large lytic lesion centered in the right acetabular region as noted above. There is protrusion of the right femoral head into the lytic lesion involving the right acetabulum with medial and superior displacement of the femoral head in relation to the acetabulum. Lytic lesions are identified involving both inferior pubic rami. Other findings as noted above KUB X-Ray 09/16/17 12:22 IMPRESSION: NO RADIOGRAPHIC EVIDENCE FOR ACUTE ABDOMINAL DISEASE. See above bony changes. Moderate constipation. Status: Imported from PACS Assessment & Plan - Diagnosis (1) Metastatic lung carcinoma Qualifiers: Laterality: right Qualified Code(s): C78.01 - Secondary malignant neoplasm of right lung Is this a current diagnosis for this admission?: Yes Plan: 56-year-old white female with metastatic lung carcinoma who is in the process of receiving external beam radiation therapy when increased pain necessitating hospital admission. During this admission pain management will be consult as well hematology/oncology. The problem is that the patient has significant pain and functional compromise from the protrusio while not having significant compromise of any vital organs. (2) Lytic bone lesion of hip Is this a current diagnosis for this admission?: Yes Plan: Dr. Castillo is consulted for resumption of external beam radiation therapy. The magnitude of the bone loss in the right hemipelvis is such that surgical reconstruction would be difficult and probably require custom protrusio cage. If on the other hand radiation therapy can arrest the neoplastic process and is some reconstitution of bone surgical solutions may be easier. - Time Time Spent: 50 to 70 Minutes Anticipated discharge: Hospice Within: Other
[2017-09-17] MEDS ORDERED: MORPHINE SULFATE 10 MG/ML INJ ONE (08:18)
--- NOTE | 2017-09-17 09:49 | PDOC CONSULTATION ---
Consultation Consult Date: 09/17/17 Attending physician:: BRYAN MCGUIRE Consult reason:: Metastatic lung cancer with pain History of Present Illness Admission Date/PCP: 09/16/17 18:25 Patient complains of: Severe pain in her right hip History of Present Illness: LINA FARFAN is a 56 year old female who has biopsy-proven metastatic lung cancer to the right acetabulum. She states that she began having severe leg pain 4-5 months ago. She presented to her PCP who was able to arrange for her to see Dr. Mcguire. Biopsy of the hip was performed which confirmed metastatic NSC Lung Cancer. Due to pain and impending fracture, she was started on radiation treatments. However, during this process, it appears that she did have fracture of the hip. She has never had adequate pain control and moving back and forth for radiation treatments has been impossible. Today she states that she is having severe pain in her hip, and down her entire leg. She is also having numbness in the leg. She did have a good BM this morning, but prior to this has been constipated. Past Medical History Cardiac Medical History: Reports: Hypertension Denies: Coronary Artery Disease, Myocardial Infarction Pulmonary Medical History: Reports: Asthma Denies: Bronchitis, Chronic Obstructive Pulmonary Disease (COPD), Pneumonia Neurological Medical History: Denies: Seizures Musculoskeltal Medical History: Denies: Arthritis Hematology: Denies: Anemia Social History Information Source: Patient Lives with: Family, Other - Has a fiance. She is [id number] and is postmenopausal. Smoking Status: Current Every Day Smoker Cigarettes Packs Per Day: 1 Frequency of Alcohol Use: None Hx Recreational Drug Use: No Hx Prescription Drug Abuse: No Family History Family History: Reviewed & Not Pertinent Parental Family History Reviewed: Yes - Father of lung cancer. Mother living with DM. Children Family History Reviewed: Yes Sibling(s) Family History Reviewed.: Yes Medication/Allergy Home Medications: Acetaminophen [Tylenol Extra Strength] 1,000 mg PO DAILYP PRN 09/16/17 Docusate Sodium [Colace 100 mg Capsule] 100 mg PO Q8 09/16/17 Hydrocodone/Acetaminophen [[place] 7.5-325 mg Tablet] 1 tab PO Q4HP PRN 09/16/17 Lisinopril/Hydrochlorothiazide [Zestoretic 10-12.5 mg Tablet] 1 tab PO DAILY 01/01 Morphine Sulfate [Roxanol] 10 mg PO Q4HP PRN 09/16/17 Sennosides [Chocolated Laxative] 30 mg PO Q12 09/16/17 Allergies/Adverse Reactions: acetaminophen [From Pamprin Max] Allergy (Verified 09/16/17 11:34) aspirin [From Pamprin Max] Allergy (Verified 09/16/17 11:34) caffeine [From Pamprin Max] Allergy (Verified 09/16/17 11:34) codeine Allergy (Verified 09/16/17 11:34) Tachycardia Review of Systems Constitutional: ABSENT: fever(s), headache(s) Nose, Mouth, and Throat: ABSENT: sore throat Cardiovascular: ABSENT: chest pain Respiratory: ABSENT: dyspnea Gastrointestinal: PRESENT: constipation. ABSENT: abdominal pain Genitourinary: ABSENT: dysuria Musculoskeletal: PRESENT: as per HPI Neurological: PRESENT: as per HPI, abnormal movements - Due to pain. Psychiatric: PRESENT: depression Physical Exam Vital Signs: Temp Pulse Resp BP Pulse Ox 98.3 F 75 18 108/54 L 95 09/16/17 23:48 09/16/17 23:48 09/16/17 23:48 09/16/17 23:48 09/16/17 23:48 Intake & Output 09/16/17 09/17/17 09/18/17 06:59 06:59 06:59 Intake Total 610 Output Total 850 Balance -240 General appearance: PRESENT: no acute distress, other - Overweight female. Head exam: PRESENT: atraumatic Eye exam: PRESENT: conjunctiva pink Mouth exam: PRESENT: moist, tongue midline Neck exam: ABSENT: JVD, lymphadenopathy Respiratory exam: PRESENT: wheezes - Bilaterally Cardiovascular exam: PRESENT: RRR. ABSENT: rubs, systolic murmur Pulses: PRESENT: +1 pedal pulses bilateral Vascular exam: PRESENT: other - Right foot cool to the touch compared to left foot. Good color GI/Abdominal exam: PRESENT: soft. ABSENT: tenderness Extremities exam: PRESENT: tenderness - Right leg with any movement.. ABSENT: pedal edema Neurological exam: PRESENT: alert, oriented to person, oriented to place, oriented to time, other - Full neuro exam deferred due to severe pain. Focused psych exam: PRESENT: other - tearful. Frustrated. Skin exam: ABSENT: cyanosis, erythema Results Impressions: Pelvis CT 09/16/17 00:00 IMPRESSION: Large lytic lesion centered in the right acetabular region as noted above. There is protrusion of the right femoral head into the lytic lesion involving the right acetabulum with medial and superior displacement of the femoral head in relation to the acetabulum. Lytic lesions are identified involving both inferior pubic rami. Other findings as noted above KUB X-Ray 09/16/17 12:22 IMPRESSION: NO RADIOGRAPHIC EVIDENCE FOR ACUTE ABDOMINAL DISEASE. See above bony changes. Moderate constipation. Assessment & Plan - Diagnosis (1) Hip pain Qualifiers: Laterality: right Qualified Code(s): M25.551 - Pain in right hip Is this a current diagnosis for this admission?: Yes Plan: Start Morphine PROGRAM MANAGER in an attempt to get adequate pain control. Adjust dose and plan to change to long acting PO pain meds once pain is better controlled. Also add Senna-S to prevent constipation and adjust dose as needed. (2) Lytic bone lesion of hip Is this a current diagnosis for this admission?: Yes Plan: Agree with plan for continued radiation therapy. I did discuss with Dr. Mcguire. The hip should be stable enough to move for the radiation treatments, however, these will not be possible without adequate pain control. (3) Metastatic lung carcinoma Qualifiers: Laterality: right Qualified Code(s): C78.01 - Secondary malignant neoplasm of right lung Is this a current diagnosis for this admission?: Yes Plan: Consider Zometa 4 mg IV. She would eventually benefit from systemic chemotherapy. However, will wait until after radiation has been completed. Consider DVT prophylaxis with Lovenox. I will also check CBC, CMP, VIt D levels. I will continue to follow her. Please call with any concerns. [phone]
[2017-09-17] MEDS: MORPHINE SULFATE 60 MG/60 ML RTUINJ IV PRN (11:26)
[2017-09-17 11:37] LABS: ABSOLUTE BASOPHILS # (AUTO) 0.1 10^3/uL (0.0-0.2); ABSOLUTE EOSINOPHILS # (AUTO) 0.1 10^3/uL (0.0-0.6); ABSOLUTE LYMPHOCYTES (AUTO) 1.7 10^3/uL (0.5-4.7); ABSOLUTE MONOCYTES (AUTO) 0.7 10^3/uL (0.1-1.4); ABSOLUTE NEUT (AUTO) 6.4 10^3/uL (1.7-8.2); BASOPHILS % (AUTO) 0.7 % (0-2); EOSINOPHILS % (AUTO) 0.9 % (0-6); HEMATOCRIT 36.6 % (36.0-47.0); HEMOGLOBIN 12.7 g/dL (12.0-15.5); HGB HCT DIFFERENCE 1.5; LYMPHOCYTES % (AUTO) 18.9 % (13-45); MEAN CORPUSCULAR HEMOGLOBIN 31.3 pg (27.0-33.4); MEAN CORPUSCULAR HGB CONC 34.7 g/dL (32.0-36.0); MEAN CORPUSCULAR VOLUME 90 fl (80-97); MONOCYTES % (AUTO) 8.1 % (3-13); RED BLOOD COUNT 4.07 10^6/uL (3.72-5.28); RED CELL DISTRIBUTION WIDTH 13.4 % (11.5-14.0); SEGMENTED NEUTROPHILS % (AUTO) 71.4 % (42-78)
[2017-09-17 11:48] LABS: ALANINE AMINOTRANSFERASE 72 U/L (9-52); ALBUMIN 4.1 g/dL (3.5-5.0); ALKALINE PHOSPHATASE 214 U/L (38-126); ANION GAP 12 (5-19); ASPARTATE AMINO TRANSFERASE 68 U/L (14-36); BILIRUBIN,DIRECT 0.5 mg/dL (0.0-0.4); BILIRUBIN,TOTAL 0.9 mg/dL (0.2-1.3); BLOOD UREA NITROGEN 33 mg/dL (7-20); CALCIUM 9.9 mg/dL (8.4-10.2); CARBON DIOXIDE 26 mmol/L (22-30); CHLORIDE 97 mmol/L (98-107); CREATININE RESULT 0.73 mg/dL (0.52-1.25); GLUCOSE 96 mg/dL (75-110); POTASSIUM 5.1 mmol/L (3.6-5.0); SODIUM 135.3 mmol/L (137-145)
[2017-09-17] MEDS ORDERED: LIDOCAINE 5% (700 MG) TRANSDERMAL ADH..PATCH TP ONE ×3 (15:30→17:00)
[2017-09-18] MEDS: NICOTINE 14 MG/24 HR PATCH.TD24 TD PRN (03:58)
--- NOTE | 2017-09-18 08:40 | PDOC PROGRESS REPORT ---
Subjective Progress Note for:: 09/18/17 Subjective:: Patient reports that her pain was much better last night. She was able to eat dinner but has not had a BM yet today. This morning she has more pain and does not believe the button is working as well as it was. Nurses also report that she has done well with current pain medications. Physical Exam Vital Signs: Temp Pulse Resp BP Pulse Ox 98.5 F 81 18 124/60 81 L 09/17/17 22:52 09/17/17 22:52 09/18/17 07:00 09/17/17 22:52 09/18/17 07:00 Intake & Output 09/17/17 09/18/17 09/19/17 06:59 06:59 05:59 Intake Total 610 1575 Output Total 850 2550 Balance -240 -975 General appearance: PRESENT: no acute distress, well-nourished Head exam: PRESENT: atraumatic Respiratory exam: PRESENT: wheezes - but improved from yesterday. Cardiovascular exam: PRESENT: RRR Psychiatric exam: PRESENT: depressed - tearful. Results Laboratory Results: 09/17/17 11:25 09/17/17 11:25 09/17/17 09/17/17 11:25 11:25 WBC 9.0 RBC 4.07 Hgb 12.7 Hct 36.6 MCV 90 MCH 31.3 MCHC 34.7 RDW 13.4 Plt Count 258 Seg Neutrophils % 71.4 Lymphocytes % 18.9 Monocytes % 8.1 Eosinophils % 0.9 Basophils % 0.7 Absolute Neutrophils 6.4 Absolute Lymphocytes 1.7 Absolute Monocytes 0.7 Absolute Eosinophils 0.1 Absolute Basophils 0.1 Sodium 135.3 L Potassium 5.1 H Chloride 97 L Carbon Dioxide 26 Anion Gap 12 BUN 33 H Creatinine 0.73 Est GFR ( Amer) > 60 Est GFR (Non-Af Amer) > 60 Glucose 96 Calcium 9.9 Total Bilirubin 0.9 AST 68 H ALT 72 H Alkaline Phosphatase 214 H Total Protein 7.0 Albumin 4.1 Impressions: Pelvis CT 09/16/17 00:00 IMPRESSION: Large lytic lesion centered in the right acetabular region as noted above. There is protrusion of the right femoral head into the lytic lesion involving the right acetabulum with medial and superior displacement of the femoral head in relation to the acetabulum. Lytic lesions are identified involving both inferior pubic rami. Other findings as noted above KUB X-Ray 09/16/17 12:22 IMPRESSION: NO RADIOGRAPHIC EVIDENCE FOR ACUTE ABDOMINAL DISEASE. See above bony changes. Moderate constipation. Assessment & Plan - Diagnosis (1) Hip pain Qualifiers: Laterality: right Qualified Code(s): M25.551 - Pain in right hip Is this a current diagnosis for this admission?: Yes Plan: Will start MS Contin at 60 mg BID and stop the basal Morphine IV rate 8 hours after first dose of MS Contin given. Will continue IV Morphine PCE Bolus doses only for the next 24 hours, but plan to transition back to PO tomorrow. (2) Lytic bone lesion of hip Is this a current diagnosis for this admission?: Yes (3) Metastatic lung carcinoma Qualifiers: Laterality: right Qualified Code(s): C78.01 - Secondary malignant neoplasm of right lung Is this a current diagnosis for this admission?: Yes Plan: We had a long discussion today about overall treatment plan of her lung cancer. She understands that the cancer in her lungs will continue to grow until systemic therapy can be started. We discussed possible chemotherapy in the future and the fact that this will be the only thing to give her any hope of physical therapist cancer control. I have explained that this is not curable. Plan right now is for palliative XRT to the hip in hopes of future surgery to stabilize this and help with her pain. Would not start chemotherapy until after XRT has completed. She will discuss further surgery with Dr. Borges.
[2017-09-18] MEDS: LIDOCAINE 5% (700 MG) TRANSDERMAL ADH..PATCH TP SCH ×2 (09:28)
[2017-09-18] MEDS: MORPHINE SULFATE SR 30 MG TABLET PO SCH ×2 (09:28→21:34)
[2017-09-18] MEDS ORDERED: LIDOCAINE 5% (700 MG) TRANSDERMAL ADH..PATCH TP SCH ×2 (10:00)
[2017-09-18] MEDS: MORPHINE SULFATE 60 MG/60 ML RTUINJ IV PRN (18:09)
[2017-09-19] MEDS: MORPHINE SULFATE SR 30 MG TABLET PO SCH ×2 (09:10→22:36)
[2017-09-19] MEDS: LIDOCAINE 5% (700 MG) TRANSDERMAL ADH..PATCH TP SCH ×2 (09:11)
--- NOTE | 2017-09-19 09:43 | PDOC PROGRESS REPORT ---
Subjective Progress Note for:: 09/19/17 Subjective:: Patient reports that her pain is still better controlled than prior to admission. No current difficulties with the pain meds. She had 2 good BMs yesterday. She is eating well. She is trying to transfer to the bedside commode but is not able to ambulate. Sheis worried about radiation therapy tomorrow but believes that if she can be slid from bed to table, it will be fine. Physical Exam Vital Signs: Temp Pulse Resp BP Pulse Ox 98.5 F 81 18 141/66 H 96 09/18/17 23:44 09/18/17 23:44 09/19/17 02:00 09/18/17 23:44 09/18/17 23:44 Intake & Output 09/18/17 09/19/17 09/20/17 07:59 06:59 06:59 Intake Total Output Total Balance General appearance: PRESENT: no acute distress, well-nourished Neurological exam: PRESENT: alert, awake, oriented to person, oriented to place , oriented to time, oriented to situation Psychiatric exam: PRESENT: other - Still tearful and frustrated that it took so long to receive care. She was told that she had to wait 90 days for her medicaid and was greatly worried about cost of visits. Results Laboratory Results: 09/17/17 11:25 09/17/17 11:25 Impressions: Pelvis CT 09/16/17 00:00 IMPRESSION: Large lytic lesion centered in the right acetabular region as noted above. There is protrusion of the right femoral head into the lytic lesion involving the right acetabulum with medial and superior displacement of the femoral head in relation to the acetabulum. Lytic lesions are identified involving both inferior pubic rami. Other findings as noted above KUB X-Ray 09/16/17 12:22 IMPRESSION: NO RADIOGRAPHIC EVIDENCE FOR ACUTE ABDOMINAL DISEASE. See above bony changes. Moderate constipation. Assessment & Plan - Diagnosis (1) Hip pain Qualifiers: Laterality: right Qualified Code(s): M25.551 - Pain in right hip Is this a current diagnosis for this admission?: Yes Plan: Continue MS Contin at 60 mg BID. Will transition from STADIUM MANAGER to PO Morphine IR and use IV doses only if needed. May need to increase MSContin tomorrow. (2) Lytic bone lesion of hip Is this a current diagnosis for this admission?: Yes Plan: I will give Zometa 4 mg IV x 1 dose today. Plan radiation therapy again tomorrow. (3) Metastatic lung carcinoma Qualifiers: Laterality: right Qualified Code(s): C78.01 - Secondary malignant neoplasm of right lung Is this a current diagnosis for this admission?: Yes Plan: I will add heparin for DVT prophylaxis. We again discussed her overall situation. She is very greatful to finally be receiving treatment.
[2017-09-19] MEDS ORDERED: ZOLEDRONIC ACID 4 MG/100 ML RTU IV ONE (11:00)
[2017-09-19] MEDS: MORPHINE SULFATE IR 15 MG TABLET PO PRN ×2 (11:06→17:46)
[2017-09-19] MEDS: NICOTINE 14 MG/24 HR PATCH.TD24 TD PRN (11:36)
[2017-09-19] MEDS: MORPHINE SULFATE 10 MG/ML INJ IV PRN ×2 (15:41→19:40)
[2017-09-19] MEDS: HEPARIN SOD (PORCINE) 5,000 UNIT/ML 1 ML SYRINGE SUBCUT SCH ×2 (15:42→22:36)
[2017-09-19] MEDS: SENNOSIDES/DOCUSATE 8.6-50 MG 1 EACH TABLET PO PRN (15:44)
[2017-09-20] MEDS: HEPARIN SOD (PORCINE) 5,000 UNIT/ML 1 ML SYRINGE SUBCUT SCH ×3 (05:23→22:17)
[2017-09-20 07:29] LABS: ABSOLUTE EOSINOPHILS # (AUTO) 0.1 10^3/uL (0.0-0.6); ABSOLUTE LYMPHOCYTES (AUTO) 0.9 10^3/uL (0.5-4.7); ABSOLUTE MONOCYTES (AUTO) 0.4 10^3/uL (0.1-1.4); ABSOLUTE NEUT (AUTO) 5.3 10^3/uL (1.7-8.2); BASOPHILS % (AUTO) 0.5 % (0-2); EOSINOPHILS % (AUTO) 1.3 % (0-6); HEMATOCRIT 34.3 % (36.0-47.0); HEMOGLOBIN 11.7 g/dL (12.0-15.5); HGB HCT DIFFERENCE 0.8; LYMPHOCYTES % (AUTO) 13.8 % (13-45); MEAN CORPUSCULAR HEMOGLOBIN 31.2 pg (27.0-33.4); MEAN CORPUSCULAR HGB CONC 34.3 g/dL (32.0-36.0); MEAN CORPUSCULAR VOLUME 91 fl (80-97); RED BLOOD COUNT 3.76 10^6/uL (3.72-5.28); RED CELL DISTRIBUTION WIDTH 13.3 % (11.5-14.0); SEGMENTED NEUTROPHILS % (AUTO) 78.4 % (42-78); WHITE BLOOD COUNT 6.8 10^3/uL (4.0-10.5)
[2017-09-20 07:41] LABS: ALANINE AMINOTRANSFERASE 45 U/L (9-52); ALBUMIN 3.5 g/dL (3.5-5.0); ALKALINE PHOSPHATASE 189 U/L (38-126); ANION GAP 8 (5-19); ASPARTATE AMINO TRANSFERASE 25 U/L (14-36); BILIRUBIN,DIRECT 0.3 mg/dL (0.0-0.4); BILIRUBIN,TOTAL 0.8 mg/dL (0.2-1.3); BLOOD UREA NITROGEN 19 mg/dL (7-20); CALCIUM 8.9 mg/dL (8.4-10.2); CARBON DIOXIDE 32 mmol/L (22-30); CHLORIDE 94 mmol/L (98-107); CREATININE RESULT 0.62 mg/dL (0.52-1.25); GLUCOSE 107 mg/dL (75-110); POTASSIUM 4.9 mmol/L (3.6-5.0); SODIUM 134.2 mmol/L (137-145); TOTAL PROTEIN 6.2 g/dL (6.3-8.2)
--- NOTE | 2017-09-20 08:12 | PDOC PROGRESS REPORT ---
Subjective Progress Note for:: 09/20/17 Subjective:: Patient states that she slept very well last night and that her pain has been well controlled with the current regimen. She again asks about radiation treatments today. Physical Exam Vital Signs: Temp Pulse Resp BP Pulse Ox 98.3 F 85 20 142/71 H 96 09/20/17 00:04 09/20/17 00:04 09/20/17 00:04 09/20/17 00:04 09/20/17 00:04 Intake & Output 09/19/17 09/20/17 09/21/17 06:59 06:59 06:59 Intake Total 2160 Output Total 4500 Balance -2340 General appearance: PRESENT: no acute distress, cooperative Exam: Pleasant, sitting up in bed talking on the phone. Head exam: PRESENT: atraumatic, normocephalic Neurological exam: PRESENT: alert, awake, oriented to person, oriented to place , oriented to time, oriented to situation Psychiatric exam: PRESENT: appropriate affect, normal mood Focused psych exam: ABSENT: restlessness Results Laboratory Results: 09/20/17 06:45 09/20/17 06:45 09/20/17 09/20/17 06:45 06:45 WBC 6.8 RBC 3.76 Hgb 11.7 L Hct 34.3 L MCV 91 MCH 31.2 MCHC 34.3 RDW 13.3 Plt Count 222 Seg Neutrophils % 78.4 H Lymphocytes % 13.8 Monocytes % 6.0 Eosinophils % 1.3 Basophils % 0.5 Absolute Neutrophils 5.3 Absolute Lymphocytes 0.9 Absolute Monocytes 0.4 Absolute Eosinophils 0.1 Absolute Basophils 0.0 Sodium 134.2 L Potassium 4.9 Chloride 94 L Carbon Dioxide 32 H Anion Gap 8 BUN 19 Creatinine 0.62 Est GFR ( Amer) > 60 Est GFR (Non-Af Amer) > 60 Glucose 107 Calcium 8.9 Total Bilirubin 0.8 AST 25 ALT 45 Alkaline Phosphatase 189 H Total Protein 6.2 L Albumin 3.5 Impressions: Pelvis CT 09/16/17 00:00 IMPRESSION: Large lytic lesion centered in the right acetabular region as noted above. There is protrusion of the right femoral head into the lytic lesion involving the right acetabulum with medial and superior displacement of the femoral head in relation to the acetabulum. Lytic lesions are identified involving both inferior pubic rami. Other findings as noted above KUB X-Ray 09/16/17 12:22 IMPRESSION: NO RADIOGRAPHIC EVIDENCE FOR ACUTE ABDOMINAL DISEASE. See above bony changes. Moderate constipation. Assessment & Plan - Diagnosis (1) Hip pain Qualifiers: Laterality: right Qualified Code(s): M25.551 - Pain in right hip Is this a current diagnosis for this admission?: Yes Plan: Continue current pain regimen. No changes today. Encourage PO instead of IV PRN meds and only with severe pain. (2) Lytic bone lesion of hip Is this a current diagnosis for this admission?: Yes Plan: Await radiation therapy today and further plans per Dr. Borges. S/P 1 dose of Zometa. (3) Metastatic lung carcinoma Qualifiers: Laterality: right Qualified Code(s): C78.01 - Secondary malignant neoplasm of right lung Is this a current diagnosis for this admission?: Yes Plan: Further discussion of long-term treamtent after hip has been stabilized.
[2017-09-20] MEDS: MORPHINE SULFATE SR 30 MG TABLET PO SCH ×2 (09:29→22:17)
[2017-09-20] MEDS: LIDOCAINE 5% (700 MG) TRANSDERMAL ADH..PATCH TP SCH ×2 (09:31)
[2017-09-20] MEDS: MORPHINE SULFATE IR 15 MG TABLET PO PRN ×2 (11:19→17:20)
[2017-09-20] MEDS: NICOTINE 14 MG/24 HR PATCH.TD24 TD PRN (11:21)
[2017-09-20] MEDS ORDERED: ACETAMINOPHEN 325 MG TABLET PO PRN (16:19)
--- NOTE | 2017-09-20 17:12 | RADIOLOGY REPORT (SQ) ---
EXAM DESCRIPTION: CHEST SINGLE VIEW COMPLETED DATE/TIME: 09/20/2017 4:41 pm REASON FOR STUDY: Temp 102.4, R/O Pneumonia COMPARISON: 08/25/2017 EXAM PARAMETERS: NUMBER OF VIEWS: One view. TECHNIQUE: Single frontal radiographic view of the chest acquired. RADIATION DOSE: NA LIMITATIONS: None. FINDINGS: LUNGS AND PLEURA: Stable right upper lobe mass with adjacent subsegmental atelectasis. Hermila ngs and pleural spaces otherwise clear. MEDIASTINUM AND HILAR STRUCTURES: No masses. Contour normal. HEART AND VASCULAR STRUCTURES: Heart normal in size. Normal vasculature. BONES: No acute findings. HARDWARE: None in the chest. OTHER: No other significant finding. IMPRESSION: STABLE RIGHT UPPER LOBE MASS WITH ADJACENT SUBSEGMENTAL ATELECTASIS AGAIN HIGHLY SUSPICI OUS FOR PRIMARY LUNG CARCINOMA. TECHNICAL DOCUMENTATION: JOB ID: [id number] [employer]- All Rights Reserved
--- NOTE | 2017-09-20 17:37 | CONSULT/HISTORY AND PHYSICAL E ---
Consultation/History and Physical PATIENT NAME: LINA FARFAN : 1960 AGE: 56Y DATE: 09/17/2017 ROOM: 429 CHIEF COMPLAINT: Right hip pain. HISTORY OF PRESENT ILLNESS: This is a 56-year-old female with severe right hip pain secondary to metastatic lung cancer with near destruction of the right hip joint. She was unable to be compliant with her outpatient radiation due to severe pain limiting her mobility. Patient was admitted last night, 09/16/17, through the ER due to severe pain. She was admitted for adequate pain control regimen so she can start outpatient radiation. She is currently on LIVE SOURCE OPERATOR morphine 1 mg an hour basal. She is averaging about 0.5 mg hourly via the LIVE SOURCE OPERATOR button for a total of 1.5 mg an hour morphine. She is currently comfortable at rest but still has significant pain with any movement of the right lower extremity, i.e., transferring to the bedside commode and back into bed. She is only comfortable at rest. Besides her significant right hip pain, she also has some significant throbbing and aching pain in her right knee and right foot, currently alleviated with heat. I have spoken with Dr. Conway with the oncology team who actually started the LIVE SOURCE OPERATOR pump this morning. Her goal was to figure out a good basal rate for pain control and then convert to p.o. or transdermal equivalent so she can complete radiation treatment and ideally only be on the LIVE SOURCE OPERATOR pump for about 24 hours before conversion. PAST MEDICAL HISTORY: Patient has hypertension and asthma. She also has metastatic lung cancer recently diagnosed in June of 2017. No surgical history that I am aware of. SOCIAL HISTORY: Lives with family. She is a current everyday smoker, 1 pack per day. Denies alcohol, recreation or prescription drug abuse. FAMILY HISTORY: Not pertinent to this consult. MEDICATIONS AT HOME: 1. Tylenol. 2. Docusate sodium. 3. Hydrocodone acetaminophen. 4. Lisinopril/hydrochlorothiazide. 5. Morphine sulfate. 6. Sennosides. ALLERGIES: 1. TYLENOL. 2. ASPIRIN. 3. CAFFEINE. 4. CODEINE. Reported adverse reaction of tachycardia. REVIEW OF SYSTEMS: Denies fever, chills, nausea, vomiting. Positive for constipation. Negative for diarrhea. Right hip pain, right knee pain, right foot pain. DIAGNOSTICS: There was a CT pelvis without contrast on 09/16/2017. Impression: Large lytic lesion centered in the right acetabular region as there is protrusion of the right femoral head into the lytic lesion involving the right acetabulum with medial and superior displacement of the femoral head in relation to the acetabulum. Lytic lesions identified involving the inferior pubic rami. Other findings as noted in the full report. PHYSICAL EXAMINATION: VITAL SIGNS: Taken at 11:35 a.m. Temperature was 98.1 degrees Fahrenheit taken orally, blood pressure is 124/60 right arm sitting, pulse 73, respirations are 18. Oxygen was 94% on room air. Pain was reported 5/5 without medications and 2/5 once medications took effect. GENERAL: Well developed, well nourished female in no acute distress. Lying comfortably supine in bed. Alert and oriented x3. HEENT: Eyes: EOMI. CARDIOVASCULAR: Regular rate and rhythm. Pulse was +2 bilateral radials. RESPIRATIONS: Nonlabored work of breathing. LUNGS: Clear to auscultation bilaterally. ABDOMEN: Soft, nontender, nondistended. Normoactive bowel sounds x4. NEUROLOGIC: Alert and oriented x3. Cranial nerves II-XII grossly intact. Activities Director Scouting strength and EHL are 5/5 bilaterally. Negative clonus. Negative Shawn. Diminished light touch to right lateral thigh, otherwise, intact. ASSESSMENT: 1. Right hip pain. 2. Metastatic lung cancer. 3. Right knee and right ankle pain. PLAN: 1. Continue LIVE SOURCE OPERATOR pump per Dr. Conway's recommendation and consider conversion to Fentanyl to prepare for discharge and radiation treatment once adequate control established. 2. Trial Lidoderm patches to the right knee and right foot alternating with heat, 12 hours on and 12 off (heat while the patches are off). Re-consult me or our office as needed. DICTATING PHYSICIAN: MICKI LACEY PA-C For Jeremias Serrano MD [id number] PHY#: [id number] ID: [id number] JOB#: [id number] ACCT: [id number] cc:JOSE RAUL LACEY M.D. > MTDD
[2017-09-20] MEDS: SENNOSIDES/DOCUSATE 8.6-50 MG 1 EACH TABLET PO PRN (18:36)
[2017-09-20] MEDS: MORPHINE SULFATE 10 MG/ML INJ IV PRN (19:39)
[2017-09-21] MEDS: MORPHINE SULFATE IR 15 MG TABLET PO PRN ×3 (03:42→15:41)
[2017-09-21] MEDS: HEPARIN SOD (PORCINE) 5,000 UNIT/ML 1 ML SYRINGE SUBCUT SCH ×3 (05:45→21:35)
--- NOTE | 2017-09-21 06:55 | PDOC PROGRESS REPORT ---
Subjective Progress Note for:: 09/21/17 Subjective:: Patient with no new complaints. She is rather upbeat about progress. Physical Exam Vital Signs: Temp Pulse Resp BP Pulse Ox 37.7 C 85 17 132/55 H 95 09/20/17 19:36 09/20/17 19:36 09/20/17 19:36 09/20/17 19:36 09/20/17 19:36 Intake & Output 09/19/17 09/20/17 09/21/17 06:59 06:59 06:59 Intake Total 2160 1652 Output Total 4500 4100 Balance -2340 -2448 General appearance: PRESENT: no acute distress Head exam: PRESENT: normocephalic Respiratory exam: PRESENT: unlabored Cardiovascular exam: PRESENT: RRR Pulses: PRESENT: +1 pedal pulses bilateral Vascular exam: PRESENT: normal capillary refill GI/Abdominal exam: PRESENT: soft Rectal exam: PRESENT: deferred Extremities exam: PRESENT: other - Right lower extremity elevated on pillows. Patient supine in the bed. Neurological exam: PRESENT: alert, awake, oriented to person, oriented to place , oriented to time, oriented to situation. ABSENT: motor sensory deficit Psychiatric exam: PRESENT: appropriate affect, normal mood. ABSENT: homicidal ideation, suicidal ideation Skin exam: PRESENT: dry, intact, warm. ABSENT: cyanosis, rash Results Laboratory Results: 09/20/17 06:45 09/20/17 06:45 09/20/17 09/20/17 06:45 06:45 WBC 6.8 RBC 3.76 Hgb 11.7 L Hct 34.3 L MCV 91 MCH 31.2 MCHC 34.3 RDW 13.3 Plt Count 222 Seg Neutrophils % 78.4 H Lymphocytes % 13.8 Monocytes % 6.0 Eosinophils % 1.3 Basophils % 0.5 Absolute Neutrophils 5.3 Absolute Lymphocytes 0.9 Absolute Monocytes 0.4 Absolute Eosinophils 0.1 Absolute Basophils 0.0 Sodium 134.2 L Potassium 4.9 Chloride 94 L Carbon Dioxide 32 H Anion Gap 8 BUN 19 Creatinine 0.62 Est GFR ( Amer) > 60 Est GFR (Non-Af Amer) > 60 Glucose 107 Calcium 8.9 Total Bilirubin 0.8 AST 25 ALT 45 Alkaline Phosphatase 189 H Total Protein 6.2 L Albumin 3.5 Impressions: Pelvis CT 09/16/17 00:00 IMPRESSION: Large lytic lesion centered in the right acetabular region as noted above. There is protrusion of the right femoral head into the lytic lesion involving the right acetabulum with medial and superior displacement of the femoral head in relation to the acetabulum. Lytic lesions are identified involving both inferior pubic rami. Other findings as noted above KUB X-Ray 09/16/17 12:22 IMPRESSION: NO RADIOGRAPHIC EVIDENCE FOR ACUTE ABDOMINAL DISEASE. See above bony changes. Moderate constipation. Chest X-Ray 09/20/17 00:00 IMPRESSION: STABLE RIGHT UPPER LOBE MASS WITH ADJACENT SUBSEGMENTAL ATELECTASIS AGAIN HIGHLY SUSPICIOUS FOR PRIMARY LUNG CARCINOMA. Status: Imported from PACS Assessment & Plan - Diagnosis (1) Metastatic lung carcinoma Qualifiers: Laterality: right Qualified Code(s): C78.01 - Secondary malignant neoplasm of right lung Is this a current diagnosis for this admission?: Yes (2) Lytic bone lesion of hip Is this a current diagnosis for this admission?: Yes Plan: Patient received radiation therapy yesterday. Febrile episode last night with a T-max of 39.4. Fever workup started. May be related to tumor necrosis as much as an infectious process. - Time Time Spent with patient: 15-24 minutes Anticipated discharge: Other Within: Other
--- NOTE | 2017-09-21 08:38 | PDOC PROGRESS REPORT ---
Subjective Progress Note for:: 09/21/17 Subjective:: Patient states that she is in more pain this morning. She had a fever last night, but this morning, it is gone. She has not had a BM for 2 days, but continues to drink prune juice. She saw Dr. Borges this morning, and plan is to keep her in the hospital until her radiation treatments have completed this week. She is unsure what the long-term plan is. Physical Exam Vital Signs: Temp Pulse Resp BP Pulse Ox 99.8 F 85 17 132/55 H 95 09/20/17 19:36 09/20/17 19:36 09/20/17 19:36 09/20/17 19:36 09/20/17 19:36 Intake & Output 09/20/17 09/21/17 09/22/17 06:59 06:59 06:59 Intake Total 2160 1652 Output Total 4500 4100 Balance -2340 -2448 General appearance: PRESENT: no acute distress, other - Overweight, female, sitting up in bed eating breakfast. Head exam: PRESENT: atraumatic Respiratory exam: PRESENT: clear to auscultation chalo Pulses: PRESENT: normal dorsalis pedis pul GI/Abdominal exam: PRESENT: soft. ABSENT: tenderness Extremities exam: PRESENT: other - No obvious erythema, edema. Ankles with FROM , but did not try to move her hips. Neurological exam: PRESENT: alert, awake, oriented to person, oriented to place , oriented to time, oriented to situation Skin exam: PRESENT: dry, warm Results Laboratory Results: 09/20/17 06:45 09/20/17 06:45 Impressions: Pelvis CT 09/16/17 00:00 IMPRESSION: Large lytic lesion centered in the right acetabular region as noted above. There is protrusion of the right femoral head into the lytic lesion involving the right acetabulum with medial and superior displacement of the femoral head in relation to the acetabulum. Lytic lesions are identified involving both inferior pubic rami. Other findings as noted above KUB X-Ray 09/16/17 12:22 IMPRESSION: NO RADIOGRAPHIC EVIDENCE FOR ACUTE ABDOMINAL DISEASE. See above bony changes. Moderate constipation. Chest X-Ray 09/20/17 00:00 IMPRESSION: STABLE RIGHT UPPER LOBE MASS WITH ADJACENT SUBSEGMENTAL ATELECTASIS AGAIN HIGHLY SUSPICIOUS FOR PRIMARY LUNG CARCINOMA. Assessment & Plan - Diagnosis (1) Hip pain Qualifiers: Laterality: right Qualified Code(s): M25.551 - Pain in right hip Is this a current diagnosis for this admission?: Yes Plan: Seems to be doing well with current pain medications. No changes today. (2) Lytic bone lesion of hip Is this a current diagnosis for this admission?: Yes Plan: Continue radiation. Further plans per Dr. Borges. (3) Metastatic lung carcinoma Qualifiers: Laterality: right Qualified Code(s): C78.01 - Secondary malignant neoplasm of right lung Is this a current diagnosis for this admission?: Yes Plan: We discussed DC Berrios Cath, but she states it is too soon. She will continue to try to move around gently and transfer to bedside commode. (4) Fever Is this a current diagnosis for this admission?: Yes Plan: Await Blood and urine cultures. No other clinical evidence of DVT. Possible tumor fever. Will watch closely.
[2017-09-21] MEDS: LIDOCAINE 5% (700 MG) TRANSDERMAL ADH..PATCH TP SCH ×2 (09:26)
[2017-09-21] MEDS: NICOTINE 14 MG/24 HR PATCH.TD24 TD PRN (09:26)
[2017-09-21] MEDS: MORPHINE SULFATE SR 30 MG TABLET PO SCH ×2 (10:40→21:35)
[2017-09-22] MEDS: MORPHINE SULFATE IR 15 MG TABLET PO PRN ×3 (03:12→17:08)
[2017-09-22] MEDS: HEPARIN SOD (PORCINE) 5,000 UNIT/ML 1 ML SYRINGE SUBCUT SCH ×3 (05:19→22:45)
--- NOTE | 2017-09-22 07:33 | PDOC PROGRESS REPORT ---
Subjective Progress Note for:: 09/22/17 Subjective:: Patient with decreased pain Physical Exam Vital Signs: Temp Pulse Resp BP Pulse Ox 37.0 C 80 16 123/65 97 09/21/17 23:48 09/21/17 23:48 09/21/17 23:48 09/21/17 23:48 09/21/17 23:48 Intake & Output 09/21/17 09/22/17 09/23/17 06:59 06:59 06:59 Intake Total 1652 720 Output Total 4100 850 Balance -2448 -130 Weight 86.183 kg General appearance: PRESENT: mild distress Head exam: PRESENT: normocephalic Vascular exam: PRESENT: normal capillary refill GI/Abdominal exam: PRESENT: soft Rectal exam: PRESENT: deferred Extremities exam: PRESENT: other - Right lower extremity elevated on pillows with intact neurovascular exam Results Impressions: Pelvis CT 09/16/17 00:00 IMPRESSION: Large lytic lesion centered in the right acetabular region as noted above. There is protrusion of the right femoral head into the lytic lesion involving the right acetabulum with medial and superior displacement of the femoral head in relation to the acetabulum. Lytic lesions are identified involving both inferior pubic rami. Other findings as noted above KUB X-Ray 09/16/17 12:22 IMPRESSION: NO RADIOGRAPHIC EVIDENCE FOR ACUTE ABDOMINAL DISEASE. See above bony changes. Moderate constipation. Chest X-Ray 09/20/17 00:00 IMPRESSION: STABLE RIGHT UPPER LOBE MASS WITH ADJACENT SUBSEGMENTAL ATELECTASIS AGAIN HIGHLY SUSPICIOUS FOR PRIMARY LUNG CARCINOMA. Status: Imported from PACS Assessment & Plan - Diagnosis (1) Metastatic lung carcinoma Qualifiers: Laterality: right Qualified Code(s): C78.01 - Secondary malignant neoplasm of right lung Is this a current diagnosis for this admission?: Yes (2) Lytic bone lesion of hip Is this a current diagnosis for this admission?: Yes Plan: Patient receiving external beam radiation therapy to the right hip. Pain may be marginally improved. Functional level is unchanged. Long-term plans uncertain. - Time Anticipated discharge: Other Within: Other
[2017-09-22 07:35] LABS: ABSOLUTE EOSINOPHILS # (AUTO) 0.1 10^3/uL (0.0-0.6); ABSOLUTE LYMPHOCYTES (AUTO) 0.8 10^3/uL (0.5-4.7); ABSOLUTE MONOCYTES (AUTO) 0.8 10^3/uL (0.1-1.4); ABSOLUTE NEUT (AUTO) 3.4 10^3/uL (1.7-8.2); EOSINOPHILS % (AUTO) 2.7 % (0-6); HEMATOCRIT 32.4 % (36.0-47.0); HEMOGLOBIN 11.2 g/dL (12.0-15.5); HGB HCT DIFFERENCE 1.2; LYMPHOCYTES % (AUTO) 15.3 % (13-45); MEAN CORPUSCULAR HEMOGLOBIN 31.2 pg (27.0-33.4); MEAN CORPUSCULAR HGB CONC 34.7 g/dL (32.0-36.0); MEAN CORPUSCULAR VOLUME 90 fl (80-97); MONOCYTES % (AUTO) 14.8 % (3-13); RED CELL DISTRIBUTION WIDTH 12.9 % (11.5-14.0); SEGMENTED NEUTROPHILS % (AUTO) 66.2 % (42-78); WHITE BLOOD COUNT 5.1 10^3/uL (4.0-10.5)
[2017-09-22 07:46] LABS: ALANINE AMINOTRANSFERASE 50 U/L (9-52); ALBUMIN 3.2 g/dL (3.5-5.0); ALKALINE PHOSPHATASE 205 U/L (38-126); ANION GAP 10 (5-19); ASPARTATE AMINO TRANSFERASE 29 U/L (14-36); BILIRUBIN,DIRECT 0.3 mg/dL (0.0-0.4); BILIRUBIN,TOTAL 0.5 mg/dL (0.2-1.3); BLOOD UREA NITROGEN 13 mg/dL (7-20); CALCIUM 8.2 mg/dL (8.4-10.2); CARBON DIOXIDE 29 mmol/L (22-30); CHLORIDE 95 mmol/L (98-107); CREATININE RESULT 0.57 mg/dL (0.52-1.25); GLUCOSE 113 mg/dL (75-110); POTASSIUM 4.3 mmol/L (3.6-5.0); SODIUM 134.3 mmol/L (137-145); TOTAL PROTEIN 5.9 g/dL (6.3-8.2)
--- NOTE | 2017-09-22 08:05 | PDOC PROGRESS REPORT ---
Subjective Progress Note for:: 09/22/17 Subjective:: Patient reports increased pain yesterday during treatment. She is very upset that she yelled at the radiation techs. She had a BM yesterday and today. She is pleased with the new air mattress. Physical Exam Vital Signs: Temp Pulse Resp BP Pulse Ox 98.6 F 80 16 123/65 97 09/21/17 23:48 09/21/17 23:48 09/21/17 23:48 09/21/17 23:48 09/21/17 23:48 Intake & Output 09/21/17 09/22/17 09/23/17 06:59 06:59 06:59 Intake Total 1652 720 Output Total 4100 850 Balance -2448 -130 Weight 86.183 kg General appearance: PRESENT: no acute distress Exam: female sitting on bedside commode. Respiratory exam: PRESENT: wheezes - bilaterally. Cardiovascular exam: PRESENT: RRR. ABSENT: systolic murmur Extremities exam: ABSENT: pedal edema Neurological exam: PRESENT: alert, awake, other - Converses freely and seems to understand situation. Results Laboratory Results: 09/22/17 07:08 09/22/17 07:08 09/22/17 09/22/17 07:08 07:08 WBC 5.1 RBC 3.60 L Hgb 11.2 L Hct 32.4 L MCV 90 MCH 31.2 MCHC 34.7 RDW 12.9 Plt Count 205 Seg Neutrophils % 66.2 Lymphocytes % 15.3 Monocytes % 14.8 H Eosinophils % 2.7 Basophils % 1.0 Absolute Neutrophils 3.4 Absolute Lymphocytes 0.8 Absolute Monocytes 0.8 Absolute Eosinophils 0.1 Absolute Basophils 0.0 Sodium 134.3 L Potassium 4.3 Chloride 95 L Carbon Dioxide 29 Anion Gap 10 BUN 13 Creatinine 0.57 Est GFR ( Amer) > 60 Est GFR (Non-Af Amer) > 60 Glucose 113 H Calcium 8.2 L Total Bilirubin 0.5 AST 29 ALT 50 Alkaline Phosphatase 205 H Total Protein 5.9 L Albumin 3.2 L Impressions: Pelvis CT 09/16/17 00:00 IMPRESSION: Large lytic lesion centered in the right acetabular region as noted above. There is protrusion of the right femoral head into the lytic lesion involving the right acetabulum with medial and superior displacement of the femoral head in relation to the acetabulum. Lytic lesions are identified involving both inferior pubic rami. Other findings as noted above KUB X-Ray 09/16/17 12:22 IMPRESSION: NO RADIOGRAPHIC EVIDENCE FOR ACUTE ABDOMINAL DISEASE. See above bony changes. Moderate constipation. Chest X-Ray 09/20/17 00:00 IMPRESSION: STABLE RIGHT UPPER LOBE MASS WITH ADJACENT SUBSEGMENTAL ATELECTASIS AGAIN HIGHLY SUSPICIOUS FOR PRIMARY LUNG CARCINOMA. Assessment & Plan - Diagnosis (1) Hip pain Qualifiers: Laterality: right Qualified Code(s): M25.551 - Pain in right hip Is this a current diagnosis for this admission?: Yes Plan: Continue current pain regimen. We discussed trying to give PO pain medication just prior to going down for radiation therapy. (2) Lytic bone lesion of hip Is this a current diagnosis for this admission?: Yes (3) Metastatic lung carcinoma Qualifiers: Laterality: right Qualified Code(s): C78.01 - Secondary malignant neoplasm of right lung Is this a current diagnosis for this admission?: Yes (4) Fever Is this a current diagnosis for this admission?: Yes Plan: Now resolved. Blood and Urine Cultures are No Growth To Date. CXR unchanged. I will add albuterol Inhaler PRN for wheezing. She continues her nicoderm patch. Will repeat labs today. Her LFTs are much improved.
[2017-09-22] MEDS: MORPHINE SULFATE SR 30 MG TABLET PO SCH ×2 (10:43→22:45)
[2017-09-22] MEDS: LIDOCAINE 5% (700 MG) TRANSDERMAL ADH..PATCH TP SCH ×2 (10:45→10:47)
[2017-09-22] MEDS: MORPHINE SULFATE 10 MG/ML INJ IV PRN ×3 (10:57→19:04)
[2017-09-22] MEDS: NICOTINE 14 MG/24 HR PATCH.TD24 TD PRN (14:00)
[2017-09-22] MEDS: ALBUTEROL SULFATE HFA (90 MCG/PUFF) 200 PUFF/8.5 GM MDI IH PRN (22:45)
[2017-09-23] MEDS: MORPHINE SULFATE IR 15 MG TABLET PO PRN ×5 (02:59→23:34)
[2017-09-23] MEDS: HEPARIN SOD (PORCINE) 5,000 UNIT/ML 1 ML SYRINGE SUBCUT SCH ×3 (06:50→22:07)
--- NOTE | 2017-09-23 07:01 | PDOC PROGRESS REPORT ---
Subjective Progress Note for:: 09/23/17 Subjective:: Patient with continued complaints of right lower extremity pain associated with any motion. Physical Exam Vital Signs: Temp Pulse Resp BP Pulse Ox 37.3 C 83 16 108/55 L 93 09/22/17 23:38 09/22/17 23:38 09/22/17 23:38 09/22/17 23:38 09/22/17 23:38 Intake & Output 09/21/17 09/22/17 09/23/17 06:59 06:59 06:59 Intake Total 6936 091 8274 Output Total 4100 850 1600 Balance -2448 -130 170 Weight 86.183 kg General appearance: PRESENT: mild distress Head exam: PRESENT: normocephalic Respiratory exam: PRESENT: unlabored Cardiovascular exam: PRESENT: RRR Pulses: PRESENT: +1 pedal pulses bilateral Vascular exam: PRESENT: normal capillary refill GI/Abdominal exam: PRESENT: soft Rectal exam: PRESENT: deferred Extremities exam: PRESENT: other - Right lower extremity elevated on pillows. Any passive range of motion even a rotational plane is painful to the patient. Distal neurovascular examination is intact. Neurological exam: PRESENT: alert, awake, oriented to person, oriented to place , oriented to time, oriented to situation. ABSENT: motor sensory deficit Psychiatric exam: PRESENT: appropriate affect, normal mood. ABSENT: homicidal ideation, suicidal ideation Skin exam: PRESENT: dry, intact, warm. ABSENT: cyanosis, rash Results Laboratory Results: 09/22/17 07:08 09/22/17 07:08 09/22/17 09/22/17 07:08 07:08 WBC 5.1 RBC 3.60 L Hgb 11.2 L Hct 32.4 L MCV 90 MCH 31.2 MCHC 34.7 RDW 12.9 Plt Count 205 Seg Neutrophils % 66.2 Lymphocytes % 15.3 Monocytes % 14.8 H Eosinophils % 2.7 Basophils % 1.0 Absolute Neutrophils 3.4 Absolute Lymphocytes 0.8 Absolute Monocytes 0.8 Absolute Eosinophils 0.1 Absolute Basophils 0.0 Sodium 134.3 L Potassium 4.3 Chloride 95 L Carbon Dioxide 29 Anion Gap 10 BUN 13 Creatinine 0.57 Est GFR ( Amer) > 60 Est GFR (Non-Af Amer) > 60 Glucose 113 H Calcium 8.2 L Total Bilirubin 0.5 AST 29 ALT 50 Alkaline Phosphatase 205 H Total Protein 5.9 L Albumin 3.2 L 09/20/17 16:25 Catheterized Urine Urine Culture - Final NO GROWTH 2 DAYS Impressions: Pelvis CT 09/16/17 00:00 IMPRESSION: Large lytic lesion centered in the right acetabular region as noted above. There is protrusion of the right femoral head into the lytic lesion involving the right acetabulum with medial and superior displacement of the femoral head in relation to the acetabulum. Lytic lesions are identified involving both inferior pubic rami. Other findings as noted above KUB X-Ray 09/16/17 12:22 IMPRESSION: NO RADIOGRAPHIC EVIDENCE FOR ACUTE ABDOMINAL DISEASE. See above bony changes. Moderate constipation. Chest X-Ray 09/20/17 00:00 IMPRESSION: STABLE RIGHT UPPER LOBE MASS WITH ADJACENT SUBSEGMENTAL ATELECTASIS AGAIN HIGHLY SUSPICIOUS FOR PRIMARY LUNG CARCINOMA. Status: Imported from PACS Assessment & Plan - Diagnosis (1) Metastatic lung carcinoma Qualifiers: Laterality: right Qualified Code(s): C78.01 - Secondary malignant neoplasm of right lung Is this a current diagnosis for this admission?: Yes Plan: 56-year-old white female with metastatic lung carcinoma and a significant metastasis to the right acetabulum with structural compromise. Patient has received 3 radiation therapy treatments and will have 2 more on and Wednesday. It is not clear to me that the radiation therapy is going to significantly improve her functional level at this point. I do not think that she has the function to consider returning home but she also does not have insurance so I think custodial facility placements can be difficult. (2) Lytic bone lesion of hip Is this a current diagnosis for this admission?: Yes - Time Time Spent with patient: 15-24 minutes Anticipated discharge: Other Within: Other
--- NOTE | 2017-09-23 08:28 | PDOC PROGRESS REPORT ---
Subjective Progress Note for:: 09/23/17 Subjective:: Today patient states that her pain is increased. She is also still very depressed about her overall situation. She wants to know that there is a long- term plan. She wants to get her cancer treated. Physical Exam Vital Signs: Temp Pulse Resp BP Pulse Ox 99.1 F 83 16 108/55 L 93 09/22/17 23:38 09/22/17 23:38 09/22/17 23:38 09/22/17 23:38 09/22/17 23:38 Intake & Output 09/22/17 09/23/17 09/24/17 06:59 06:59 06:59 Intake Total 720 1770 Output Total 850 1600 Balance -130 170 Weight 86.183 kg General appearance: PRESENT: no acute distress, cooperative Respiratory exam: PRESENT: wheezes - But improved from yesterday. Cardiovascular exam: PRESENT: RRR Extremities exam: PRESENT: tenderness - Right hip unchanged. Neurological exam: PRESENT: alert, oriented to person, oriented to place, oriented to time Results Laboratory Results: 09/22/17 07:08 09/22/17 07:08 09/20/17 16:25 Catheterized Urine Urine Culture - Final NO GROWTH 2 DAYS Impressions: Pelvis CT 09/16/17 00:00 IMPRESSION: Large lytic lesion centered in the right acetabular region as noted above. There is protrusion of the right femoral head into the lytic lesion involving the right acetabulum with medial and superior displacement of the femoral head in relation to the acetabulum. Lytic lesions are identified involving both inferior pubic rami. Other findings as noted above KUB X-Ray 09/16/17 12:22 IMPRESSION: NO RADIOGRAPHIC EVIDENCE FOR ACUTE ABDOMINAL DISEASE. See above bony changes. Moderate constipation. Chest X-Ray 09/20/17 00:00 IMPRESSION: STABLE RIGHT UPPER LOBE MASS WITH ADJACENT SUBSEGMENTAL ATELECTASIS AGAIN HIGHLY SUSPICIOUS FOR PRIMARY LUNG CARCINOMA. Assessment & Plan - Diagnosis (1) Hip pain Qualifiers: Laterality: right Qualified Code(s): M25.551 - Pain in right hip Is this a current diagnosis for this admission?: Yes Plan: I will increase MS Contin to 90 mg PO BID and continue PRN doses without change. I will re-consult pain management to see if they have any other suggestions for long-term pain control. (2) Lytic bone lesion of hip Is this a current diagnosis for this admission?: Yes Plan: Continue radiation therapy. S/P Zometa 4 mg IV x 1 dose. (3) Metastatic lung carcinoma Qualifiers: Laterality: right Qualified Code(s): C78.01 - Secondary malignant neoplasm of right lung Is this a current diagnosis for this admission?: Yes Plan: We discussed option of starting chemotherapy once radiation has completed. She is agreeable to this plan, but understands in order to do this, she will need to be discharged home and come back and forth to the office for treatments. She believes she will be able to do this with her grand-daughter's help. (4) Fever Is this a current diagnosis for this admission?: Yes - Plan Summary Plan Summary: She is still very concerned about her finances. She states that if her medicaid comes through, she will be able to have transportation back and forth to her appointments. I will see what I can do to help with this.
[2017-09-23] MEDS: LIDOCAINE 5% (700 MG) TRANSDERMAL ADH..PATCH TP SCH ×2 (09:45)
[2017-09-23] MEDS: MORPHINE SULFATE SR 30 MG TABLET PO SCH ×2 (09:48→22:07)
[2017-09-23] MEDS: ALBUTEROL SULFATE HFA (90 MCG/PUFF) 200 PUFF/8.5 GM MDI IH PRN ×2 (12:43→23:34)
[2017-09-23] MEDS: MORPHINE SULFATE 10 MG/ML INJ IV PRN ×2 (13:05→15:07)
[2017-09-23] MEDS ORDERED: INFLUENZA ADLT QUAD (36MOS+) 2017-18 VAC 0.5 ML SYR IM PRN (13:30)
[2017-09-23] MEDS: NICOTINE 14 MG/24 HR PATCH.TD24 TD PRN (15:19)
[2017-09-23] MEDS ORDERED: PHARMACY COMMUNICATION ORDER MC SCH (22:00)
[2017-09-23] MEDS: SENNOSIDES/DOCUSATE 8.6-50 MG 1 EACH TABLET PO PRN (22:12)
[2017-09-24] MEDS: MORPHINE SULFATE IR 15 MG TABLET PO PRN ×2 (04:10→10:22)
--- NOTE | 2017-09-24 05:35 | PDOC DISCHARGE SUMMARY ---
General - Admit/Disc Date/PCP Admission Date/Primary Care Provider: 09/16/17 18:25 Discharge Date: 09/24/17 - Discharge Diagnosis (1) Metastatic lung carcinoma Is this a current diagnosis for this admission?: Yes (2) Lytic bone lesion of hip Is this a current diagnosis for this admission?: Yes - Additional Information Discharge Diet: Regular Discharge Activity: Activity As Tolerated Home Medications: Acetaminophen [Tylenol Extra Strength] 1,000 mg PO DAILYP PRN 09/16/17 Docusate Sodium [Colace 100 mg Capsule] 100 mg PO Q8 09/16/17 Hydrocodone/Acetaminophen [[place] 7.5-325 mg Tablet] 1 tab PO Q4HP PRN 09/16/17 Lisinopril/Hydrochlorothiazide [Zestoretic 10-12.5 mg Tablet] 1 tab PO DAILY 01/01 Morphine Sulfate [Roxanol] 10 mg PO Q4HP PRN 09/16/17 Sennosides [Chocolated Laxative] 30 mg PO Q12 09/16/17 Lidocaine [Lidoderm 5% (700 mg) Transdermal Patch] 1 patch TP DAILY #20 adh..patch 09/24/17 Morphine Sulfate [Morphine Ir 15 mg Tablet] 30 mg PO Q4HP PRN #60 tablet Morphine Sulfate [Ms-Contin Sr 30 mg Tablet] 90 mg PO Q12 #60 tablet.sa Nicotine [Nicoderm 14 mg/24 Hr Transdermal Patch] 1 each TD DAILYP PRN #20 patch.td24 09/24/17 History of Present Illness History of Present Illness: The patient is a 56-year-old white female with progressive right hip pain and functional disability since May or June of this year. She was diagnosed with a large acetabular metastasis from metastatic lung carcinoma. She was admitted because of progressive pain and functional disability. Hospital Course Hospital Course: Patient was admitted electively. She was consulted by both hematology oncology , pain management, as well as as radiation oncology. The patient received 5 treatments from radiation oncology as well as as consultation with physical therapy for limited mobilization. Pain medication was adjusted. Physical Exam Vital Signs: Temp Pulse Resp BP Pulse Ox 36.8 C 71 16 95/49 L 94 09/23/17 23:34 09/23/17 23:34 09/23/17 23:34 09/23/17 23:34 09/23/17 23:34 Intake & Output 09/22/17 09/23/17 09/24/17 06:59 06:59 06:59 Intake Total 720 1770 540 Output Total 850 1600 1050 Balance -130 170 -510 Weight 86.183 kg General appearance: PRESENT: obese Head exam: PRESENT: normocephalic Eye exam: PRESENT: EOMI Respiratory exam: PRESENT: unlabored Cardiovascular exam: PRESENT: RRR Pulses: PRESENT: +1 pedal pulses bilateral Vascular exam: PRESENT: normal capillary refill GI/Abdominal exam: PRESENT: soft Rectal exam: PRESENT: deferred Musculoskeletal exam: PRESENT: other - Lying in hospital bed. Right lower extremities immobilized and elevated on pillows. Distal neurovascular examination is intact. Neurological exam: PRESENT: alert, awake, oriented to person, oriented to place , oriented to time, oriented to situation. ABSENT: motor sensory deficit Psychiatric exam: PRESENT: appropriate affect, normal mood. ABSENT: homicidal ideation, suicidal ideation Skin exam: PRESENT: dry, intact, warm. ABSENT: cyanosis, rash Results Laboratory Results: 09/22/17 07:08 09/22/17 07:08 Impressions: Pelvis CT 09/16/17 00:00 IMPRESSION: Large lytic lesion centered in the right acetabular region as noted above. There is protrusion of the right femoral head into the lytic lesion involving the right acetabulum with medial and superior displacement of the femoral head in relation to the acetabulum. Lytic lesions are identified involving both inferior pubic rami. Other findings as noted above KUB X-Ray 09/16/17 12:22 IMPRESSION: NO RADIOGRAPHIC EVIDENCE FOR ACUTE ABDOMINAL DISEASE. See above bony changes. Moderate constipation. Chest X-Ray 09/20/17 00:00 IMPRESSION: STABLE RIGHT UPPER LOBE MASS WITH ADJACENT SUBSEGMENTAL ATELECTASIS AGAIN HIGHLY SUSPICIOUS FOR PRIMARY LUNG CARCINOMA. Status: Imported from PACS Plan Discharge Plan: Patient to be discharged home on limited activity basis. Should be supported with home health nursing and home health physical therapy. Follow-up with Dr. gipson to be arranged. Time Spent: Less than 30 Minutes
[2017-09-24] MEDS: HEPARIN SOD (PORCINE) 5,000 UNIT/ML 1 ML SYRINGE SUBCUT SCH (05:48)
--- NOTE | 2017-09-24 08:19 | PDOC PROGRESS REPORT ---
Subjective Progress Note for:: 09/24/17 Subjective:: Pain is better controlled today, patient will be discharged home. She is uninsured and cannot afford her medications, after discharge I have asked her to come to our office and sign up for [facility], that is a program that we can offer up to $750 every 6 months that can help out with prescription medications, this will at least help her get her her first 1-2 months of pain medications, and thereafter she hopefully will be active with Medicaid. Physical Exam Vital Signs: Temp Pulse Resp BP Pulse Ox 98.2 F 71 16 95/49 L 94 09/23/17 23:34 09/23/17 23:34 09/23/17 23:34 09/23/17 23:34 09/23/17 23:34 Intake & Output 09/23/17 09/24/17 09/25/17 06:59 06:59 06:59 Intake Total 1770 780 Output Total 1600 1350 Balance 170 -570 General appearance: PRESENT: no acute distress, well-developed, well-nourished Head exam: PRESENT: atraumatic, normocephalic Eye exam: PRESENT: conjunctiva pink, EOMI, PERRLA. ABSENT: scleral icterus Ear exam: PRESENT: normal external ear exam Mouth exam: PRESENT: moist, tongue midline Neck exam: ABSENT: carotid bruit, JVD, lymphadenopathy, thyromegaly Respiratory exam: PRESENT: clear to auscultation chalo. ABSENT: rales, rhonchi, wheezes Cardiovascular exam: PRESENT: RRR. ABSENT: diastolic murmur, rubs, systolic murmur Pulses: PRESENT: normal dorsalis pedis pul Vascular exam: PRESENT: normal capillary refill GI/Abdominal exam: PRESENT: normal bowel sounds, soft. ABSENT: distended, guarding, mass, organolmegaly, rebound, tenderness Rectal exam: PRESENT: deferred Extremities exam: PRESENT: full ROM. ABSENT: calf tenderness, clubbing, pedal edema Neurological exam: PRESENT: alert, awake, oriented to person, oriented to place , oriented to time, oriented to situation, CN II-XII grossly intact. ABSENT: motor sensory deficit Psychiatric exam: PRESENT: appropriate affect, normal mood. ABSENT: homicidal ideation, suicidal ideation Skin exam: PRESENT: dry, intact, warm. ABSENT: cyanosis, rash Results Laboratory Results: 09/22/17 07:08 09/22/17 07:08 Impressions: Pelvis CT 09/16/17 00:00 IMPRESSION: Large lytic lesion centered in the right acetabular region as noted above. There is protrusion of the right femoral head into the lytic lesion involving the right acetabulum with medial and superior displacement of the femoral head in relation to the acetabulum. Lytic lesions are identified involving both inferior pubic rami. Other findings as noted above KUB X-Ray 09/16/17 12:22 IMPRESSION: NO RADIOGRAPHIC EVIDENCE FOR ACUTE ABDOMINAL DISEASE. See above bony changes. Moderate constipation. Chest X-Ray 09/20/17 00:00 IMPRESSION: STABLE RIGHT UPPER LOBE MASS WITH ADJACENT SUBSEGMENTAL ATELECTASIS AGAIN HIGHLY SUSPICIOUS FOR PRIMARY LUNG CARCINOMA. Assessment & Plan - Diagnosis (1) Metastatic lung carcinoma Qualifiers: Laterality: right Qualified Code(s): C78.01 - Secondary malignant neoplasm of right lung Is this a current diagnosis for this admission?: Yes Plan: Plan for follow-up in our office next week, she will need systemic chemotherapy (2) Lytic bone lesion of hip Is this a current diagnosis for this admission?: Yes Plan: She will have radiation today and then discharge home, she is on oral pain medication already written for her, that will be adjusted by us as an outpatient in the future. - Time Time Spent with patient: 15-24 minutes Critical Time spent with patient: 15-24 minutes
[2017-09-24 09:08] VITALS: BP 103/62
[2017-09-24] MEDS: LIDOCAINE 5% (700 MG) TRANSDERMAL ADH..PATCH TP SCH ×2 (09:11→10:22)
[2017-09-24] MEDS: MORPHINE SULFATE SR 30 MG TABLET PO SCH (09:11)
[2017-09-24] MEDS: NICOTINE 14 MG/24 HR PATCH.TD24 TD PRN (13:03)
== END 2017-09-24 12:45 | disposition home health service (06) | DRG 948 ==
LOC: ER 11:33 → EH 15:46 → UNDOADMIN 15:46 → EH 18:06 → 4S 18:06 → EH 18:25 → 4S 18:25
PROVIDERS: ADMIT Orthopaedic Surgery; ATTEND Orthopaedic Surgery
DX: G89.3 Neoplasm related pain (acute) (chronic) (principal); C79.51 Secondary malignant neoplasm of bone; C78.01 Secondary malignant neoplasm of right lung; M89.9 Disorder of bone, unspecified; M25.551 Pain in right hip; I10 Essential (primary) hypertension; J45.909 Unspecified asthma, uncomplicated; R50.9 Fever, unspecified; R26.2 Difficulty in walking, not elsewhere classified; K59.00 Constipation, unspecified; F17.210 Nicotine dependence, cigarettes, uncomplicated
CPT/HCPCS: 36415; 71010; 72192; 74000; 80053; 82306; 85025; 87040; 87086; 99285; J1644; J2270; J3489; J3490